=== PATIENT | male | born 1960 | race Two or more races ===

== ENCOUNTER 2017-11-08 13:12 | Emergency (ER) | payer MEDICAID ==
[~2017-11-08] VITALS: Ht 180.3 cm; Wt 90.7 kg
[2017-11-08 14:42] LABS: Hemoglobin 9.4 g/dL (13.5-17.5); Lymphocytes # (auto) 1.1 uL; Mean Corpuscular Volume 86.6 fL (80.0-100.0); Monocytes # (auto) 0.8 uL; Neutrophils # (auto) 8.7 uL
[2017-11-08 14:44] LABS: Basophils # (auto) 0 uL; Basophils % (auto) 0.3 % (0.0-2.0); Eosinophils # (auto) 0.4 uL; Hematocrit 29.7 % (41.0-53.0); Lymphocytes % (auto) 9.6 % (10.0-50.0); Mean Corpuscular Hemoglobin 27.5 pg (28.0-32.0); Mean Corpuscular Hgb Conc. 31.7 g/dL (32.0-36.0); Monocytes % (auto) 6.9 % (0.0-12.0); Neutrophils % (auto) 79.2 % (37.0-80.0); Platelet Count (auto) 465 10^3/uL (140-450); Red Blood Cells 3.43 10^6/uL (4.5-5.90)
[2017-11-08 14:48] LABS: Alanine Aminotransferase 19 U/L (16-61); Albumin 2.7 g/dL (3.4-5.0); Alkaline Phosphatase 135 U/L (45-117); Anion Gap 5 (5-15); Aspartate Aminotransferase 19 U/L (15-37); BUN/Creatinine Ratio 16.5; Bilirubin, Total 0.6 mg/dL (0.2-1.0); Blood Urea Nitrogen 13 mg/dL (7-18); Calcium 7.9 mg/dL (8.5-10.1); Carbon Dioxide 25 mmol/L (21-32); Chloride 109 mmol/L (98-107); GFR African American 130 mL/min; GFR Non-African American 108 mL/min; Glucose 139 mg/dL (74-106); Magnesium 2.4 mg/dL (1.6-2.6); Potassium 4.3 mmol/L (3.5-5.1); Sodium 139 mmol/L (136-145); Total Protein 6.8 g/dL (6.4-8.2)
[2017-11-08] MEDS ORDERED: IOHEXOL 350 MG/ML 100ML IJ ONE (16:23)
[2017-11-08] MEDS ORDERED: HYDROcodone-ACET 10/325MG TAB PO ONE (17:00)
[2017-11-08] MEDS ORDERED: HEPARIN SODIUM (PORCINE) 5000 UNITS/ML 1ML VIAL IV ONE (18:15)
[2017-11-08 18:30] VITALS: BP 147/81
== END 2017-11-08 18:46 | disposition home or self-care (01) ==
LOC: EDBD 13:12 → ER 13:12
DX: I26.99 Other pulmonary embolism without acute cor pulmonale (principal); R06.03 Acute respiratory distress; J90 Pleural effusion, not elsewhere classified; E11.9 Type 2 diabetes mellitus without complications
CPT/HCPCS: 36415; 71046; 71275; 80053; 83735; 84484; 85025; 93005; 93970; 96374; 99291; J1644; Q9967

== ENCOUNTER 2025-03-23 18:42 | Inpatient (IN) | payer MEDICAID ==
[~2025-03-23] VITALS: Ht 172.7 cm; Wt 114.3 kg
--- NOTE | 2025-03-23 19:00 | ED.PDOC ---
History of Present Illness HPI Comments 64 year old male came to ER via EMS for generalized weakness. Patient has history of hypertension, diabetes, congestive heart failure, and Afib. Patient states he has good compliance to his medications. Patient states that he is not on any blood thinners regarding his AFib. Has been feeling generally weak and dizzy for the past 4 days. Noted worsening by pedal edema. Denies any acute chest pain or shortness of breath Chief Complaint: General Weakness Time Seen by MD: 18:59 Primary Care Provider: DR. COFFEY Reviewed Notes: Nurses Notes Allergies: Coded Allergies: NO KNOWN ALLERGIES (Unverified , 11/08/17) Information Source: Patient Mode of Arrival: EMS Severity: Moderate Timing: Days Duration: Intermittent Past Medical History PAST MEDICAL HISTORY: AFIB, CHF, DM, HTN Surgical History: Denies all surgeries Family History Family History: Reviewed,noncontributory to illness Social History Smoker: Non-Smoker Alcohol: Denies ETOH Use Drugs: Denies Drug Use Lives In: Home Constitutional: denies: chills, diaphoresis, fatigue, fever, malaise, sweats, weakness, others EENTM: denies: blurred vision, double vision, ear bleeding, ear discharge, ear drainage, ear pain, ear ringing, eye pain, eye redness, hearing loss, mouth pain, mouth swelling, nasal discharge, nose bleeding, nose congestion, nose pain, photophobia, tearing, throat pain, throat swelling, voice changes, others Respiratory: denies: cough, hemoptysis, orthopnea, SOB at rest, shortness of breath, SOB with excertion, stridor, wheezing, others Cardiovascular: reports: edema; denies: chest pain, dizzy spells, diaphoresis, Dyspnea on exertion, irregular heart beat, left arm pain, lightheadedness, palpitations, PND, syncope, others Gastrointestinal: denies: abdomen distended, abdominal pain, blood streaked bowels, constipated, diarrhea, dysphagia, difficulty swallowing, hematemesis, melena, nausea, poor appetite, poor fluid intake, rectal bleeding, rectal pain, vomiting, others Genitourinary: denies: burning, dysuria, flank pain, frequency, hematuria, incontinence, penile discharge, penile sore, pain, testicle pain, testicle swelling, urgency, others Neurological: reports: dizziness, weakness; denies: fainting, headache, left sided numbness, left sided weakness, numbness, paresthesia, pre-existing deficit, right sided numbness, right sided weakness, seizure, speech problems, tingling, tremors, others Musculoskeletal: denies: back pain, gout, joint pain, joint swelling, muscle pain, muscle stiffness, neck pain, others Integumetry: denies: bruises, change in color, change in hair/nails, dryness, laceration, lesions, lumps, rash, wounds, others Allergic/Immunocompromised: denies: Difficulty Healing, Frequent Infections, Hives, Itching, others Hematologic/Lymphatic: denies: anemia, blood clots, easy bleeding, easy bruising, swollen glands, others Endocrine: denies: excessive hunger, excessive sweating, excessive thirst, excessive urination, flushing, intolerance to cold, intolerance to heat, unexplained weight gain, unexplained weight loss, others Psychiatric: denies: anxiety, bipolar disorder, depression, hopeless, panic dis order, schizophrenia, sleepless, suicidal, others Physical Exam General Appearance: No Apparent Distress, Normal HEENT: Normal ENT Inspection, Pharynx Normal, TMs Normal Neck: Full Range of Motion, Non-Tender, Normal, Normal Inspection Respiratory: Chest Non-Tender, Lungs Clear, No Accessory Muscle Use, No Respiratory Distress, Normal Breath Sounds Cardiovascular: No Edema, No JVD, No Murmur, No Gallop, Normal Peripheral Pulses, Regular Rate/Rhythm Breast Exam: Deferred Gastrointestinal: No Organomegaly, Non Tender, No Pulsatile Mass, Normal Bowel Sounds, Soft Genitalia: Deferred Pelvic: Deferred Rectal: Deferred Extremities: No calf tenderness, Normal capillary refill, Normal inspection, Normal range of motion, Non-tender, No pedal edema Musculoskeletal : Apperance: Normal Neurologic: Alert, drop tester II-XII nml as Tested, No Motor Deficits, Normal Affect, Normal Mood, No Sensory Deficits Cerebellar Function: Normal Reflexes: Normal Skin: Dry, Normal Color, Warm Lymphatic: No Adenopathy Was a procedure done? Was a procedure done?: No EKG EKG : Pulse Rate (adult): 175 Cardiac Rhythm: Afib Differential Dx Considerations may include: Anemia, electrolyte imbalance, dehydration, congestive heart failure, X-Ray, Labs, Meds, VS Vital Signs Date Time Temp Pulse Resp B/P (MAP) Pulse Ox O2 Delivery O2 Flow Rate FiO2 03/23/25 21:13 145 94/55 03/23/25 20:46 94 20 98 Room Air* 0 21 03/23/25 20:46 98.1 145 20 93/44 (60) 98 98.1 03/23/25 20:32 150 98/60 03/23/25 20:13 144 117/61 03/23/25 19:45 143 03/23/25 19:32 157 104/61 03/23/25 19:00 175 03/23/25 18:42 98.6 110 20 103/63 97 98.6 03/23/25 18:42 175 Lab Test 03/23/25 22:05 03/23/25 22:00 03/23/25 20:11 03/23/25 19:50 Range/Units POC Glucose 200 H 187 H 70-106 mg/dl Troponin I High Sensitivity Pending 66 *H </=54 ng/L Test 03/23/25 19:07 Range/Units White Blood Count 23.0 H 4.4-10.8 10^3/uL Red Blood Count 4.60 4.5-5.90 10^6/uL Hemoglobin 13.7 13.5-17.5 g/dL Hematocrit 41.1 41.0-53.0 % Mean Corpuscular Volume 89.4 80.0-100.0 fL Mean Corpuscular Hemoglobin 29.8 28.0-32.0 pg Mean Corpuscular Hemoglobin Concent 33.4 32.0-36.0 g/dL Red Cell Distribution Width 14.7 H 11.8-14.3 % Platelet Count 273 140-450 10^3/uL Mean Platelet Volume 8.0 6.9-10.8 fL Neutrophils (%) (Auto) 91.1 H 37.0-80.0 % Lymphocytes (%) (Auto) 2.7 L 10.0-50.0 % Monocytes (%) (Auto) 5.9 0.0-12.0 % Eosinophils (%) (Auto) 0.0 0.0-7.0 % Basophils (%) (Auto) 0.3 0.0-2.0 % Neutrophils # (Auto) 21.0 H 1.6-8.6 10 ^3/uL Lymphocytes # (Auto) 0.6 0.4-5.4 10 ^3/uL Monocytes # (Auto) 1.4 H 0-1.3 10 ^3/uL Eosinophils # (Auto) 0 0-0.8 10 ^3/uL Basophils # (Auto) 0.1 0-0.2 10 ^3/uL Nucleated Red Blood Cells 0.0 % Prothrombin Time 11.9 H 9.3-11.8 sec Prothrombin Time INR 1.14 0.9-1.15 Activated Partial Thromboplast Time 27.1 24.5-34.5 SEC Sodium Level 140 136-145 mmol/L Potassium Level 3.7 3.5-5.1 mmol/L Chloride Level 103 98-107 mmol/L Carbon Dioxide Level 19 L 20-31 mmol/L Anion Gap 18 H 5-15 Blood Urea Nitrogen 48 H 9-23 mg/dL Creatinine 1.38 H 0.700-1.30 mg/dL Glomerular Filtration Rate Calc 57 >90 mL/min BUN/Creatinine Ratio 34.8 H 10.0-20.0 Serum Glucose 191 H 74-106 mg/dL Calcium Level 8.7 8.7-10.4 mg/dL Total Bilirubin 0.7 0.2-1.0 mg/dL Aspartate Amino Transferase (AST) 34 13-40 U/L Alanine Aminotransferase (ALT) 20 7-40 U/L Alkaline Phosphatase 94 46-116 U/L Troponin I High Sensitivity 60 *H </=54 ng/L B-Type Natriuretic Peptide 261.46 0-100 pg/mL Total Protein 6.0 5.7-8.2 g/dL Albumin 3.6 3.2-4.8 g/dL Current Medications Medications (Trade) Dose Ordered Sig/Angeline Route Start Time Stop Time Status Last Admin Metoprolol Tartrate (Lopressor) 5 mg Q5M PRN IV 03/23/25 19:00 03/24/25 07:00 03/23/25 20:13 Amiodarone HCl 100 ml @ 600 mls/hr ONCE ONCE IV 03/23/25 21:30 03/23/25 21:39 DC 03/23/25 21:47 Time of 1ST Reevaluation: 18:52 Reevaluation 1ST: Unchanged Patient Education/Counseling: Diagnosis, Treatment Family Education/Counseling: No Family Present Sepsis focused exam: focus exam completed (Patient was given 1 L of IV fluid and not the full 30 cc/kilogram for sepsis due to concerns of fluid overload), time: (1900) SEPSIS Sepsis Screen Physician Orders Chest Portable (03/23/25 18:48) Heplock Iv (03/23/25 18:48) Rehanger (03/23/25 18:48) Troponin-I Hs (03/23/25 21:48) Electrocardigram (03/23/25 18:51) Metoprolol Inj (Lopressor) (03/23/25 19:00) Head Without Contrast (03/23/25 19:43) Lt Lower Dvt (03/23/25 20:28) Amiodarone 360mg/200ml Premix (Nexterone (03/23/25 21:45) Amiodarone 360mg/200ml Premix (Nexterone (03/24/25 03:45) Vital Signs Date Time Temp Pulse Resp B/P (MAP) Pulse Ox O2 Delivery O2 Flow Rate FiO2 03/23/25 21:13 145 94/55 03/23/25 20:46 94 20 98 Room Air* 0 21 03/23/25 20:46 98.1 145 20 93/44 (60) 98 98.1 03/23/25 20:32 150 98/60 03/23/25 20:13 144 117/61 03/23/25 19:45 143 03/23/25 19:32 157 104/61 03/23/25 19:00 175 03/23/25 18:42 98.6 110 20 103/63 97 98.6 03/23/25 18:42 175 Laboratory Tests Test 03/23/25 19:07 White Blood Count 23.0 10^3/uL (4.4-10.8) H Medications Medications Dose Ordered Sig/Angeline Route Start Time Stop Time Status Last Admin Dose Admin Amiodarone HCl 100 ml @ 600 mls/hr ONCE ONCE IV 03/23/25 21:30 03/23/25 21:39 DC 03/23/25 21:47 Metoprolol Tartrate 5 mg Q5M PRN IV 03/23/25 19:00 03/24/25 07:00 03/23/25 20:13 Departure 1 Departure Time of Disposition: 22:27 Impression: Primary Impression: Atrial fibrillation with rapid ventricular response Additional Impression: Left leg cellulitis Disposition: 01 HOME / SELF CARE / HOMELESS Admit to: Tele Condition: Stable Discharged With: Self Comments 64-year-old male with a history of atrial fibrillation now with left greater than right leg swelling and pain and chest pain. Lab work shows high white blood cell count of 23. Troponins are elevated at 60 and then later 66. Mild hyperglycemia renal insufficiency/acute renal injury with BUN creatinine elevated at 48 and 1.38. Ultrasound of the left leg shows no signs of DVT but there is significant lymphadenopathy. Patient was given Zosyn antibiotics. Patient was initially attempted to give 3 doses of Lopressor but it did not improve his heart rate. At amiodarone infusion was started at this point to control his atrial fibrillation. Patient was given aspirin. Patient will need admission for stabilization and further workup Critical Care Note Critical Care Time?: Yes (35 min-critical care time only) Critical care comment: Total critical care time: Approximately 46 minutes Due to a high probability of clinically significant, life threatening deterioration, the patient required my highest level of preparedness to intervene emergently and I personally spent this critical care time directly and personally managing the patient. This critical care time included obtaining a history; examining the patient; pulse oximetry; ordering and review of studies; arranging urgent treatment with development of a management plan; evaluation of patient's response to treatment; frequent reassessment; and, discussions with other providers. This critical care time was performed to assess and manage the high probability of imminent, life-threatening deterioration that could result in multi-organ failure. It was exclusive of separately billable procedures and treating other patients. Stability Stability form required: No Heart Score Heart Score: Heart Score Response (Comments) Value History N/A 0 EKG N/A 0 Age N/A 0 Risk Factors N/A 0 Troponin N/A 0 Total 0 I personally scribed for DIANE MYLES MD ([email or web address]) on 03/23/25 at 19:00. Electronically submitted by Leo Angelo ([email or web address]). DIANE MYLES MD Mar 23, 2025 19:00
--- NOTE | 2025-03-23 19:24 | DVH ---
CHEST RADIOGRAPH Indication: SOB Technique: Single frontal view of the chest was obtained COMPARISON: None FINDINGS: Lines and Tubes: None Lungs: Clear Pleura: No effusion. No pneumothorax. Cardiomediastinal contours: Unremarkable Bones: Unremarkable IMPRESSION: 1. No acute disease.
[2025-03-23 19:29] LABS: Hematocrit 41.1 % (41.0-53.0); Hemoglobin 13.7 g/dL (13.5-17.5); Mean Corpuscular Hemoglobin 29.8 pg (28.0-32.0); Mean Corpuscular Volume 89.4 fL (80.0-100.0); Nucleated Red Blood Cells % 0.0 %
[2025-03-23] MEDS: METOPROLOL TARTRATE 1MG/1ML-5ML VIAL IV PRN (19:32)
[2025-03-23 19:45] LABS: INR 1.14 (0.9-1.15); Partial Thromboplastin Time 27.1 SEC (24.5-34.5); Prothrombin Time 11.9 sec (9.3-11.8)
[2025-03-23 19:48] LABS: Alanine Aminotransferase 20 U/L (7-40); Albumin 3.6 g/dL (3.2-4.8); Alkaline Phosphatase 94 U/L (46-116); Anion Gap 18 (5-15); BUN/Creatinine Ratio 34.8 (10.0-20.0); Bilirubin, Total 0.7 mg/dL (0.2-1.0); Chloride 103 mmol/L (98-107); Potassium 3.7 mmol/L (3.5-5.1); Sodium 140 mmol/L (136-145); Total Protein 6.0 g/dL (5.7-8.2)
[2025-03-23 19:49] LABS: Blood Urea Nitrogen 48 mg/dL (9-23); Calcium 8.7 mg/dL (8.7-10.4); Carbon Dioxide 19 mmol/L (20-31); Glucose 191 mg/dL (74-106)
[2025-03-23 20:46] VITALS: PULSE 94; RESP 20; O2SAT 98
--- NOTE | 2025-03-23 21:31 | DVH ---
Ultrasound Lower Extremity Veins Indication: pain / swelling rule out DVT Comparison: None Technique: Multiplanar grayscale and color sonographic images of the lower extremity veins are provid ed. Doppler interrogation, and spectral waveform analysis performed. Findings: Impression: 1. posterior tibial vein not well visualized. otherwise no evidence of occlusive deep venous thrombos is. 2. Left inguinal lymphadenopathy measuring 3.7 x 1.3 x 2.5 cm.
[2025-03-23] MEDS: AMIODARONE 360mg/200mL PREMIX 200 ML IV ONE (21:47)
[2025-03-23] MEDS: AMIODARONE BOLUS KIT 100 ML IV ONE (21:47)
--- NOTE | 2025-03-23 22:05 | DVH ---
Indication: head injury fall Comparison: None Technique: Utilizing a multislice CT scanner, a CT scan of the brain was performed without intravenou s contrast. Coronal and sagittal reformatted images. All CT scans at this facility use dose modulation, iterative reconstruction, and/or weight based dosi ng when appropriate to reduce radiation dose to as low as reasonably achievable. Findings: There is no acute infarct, intracranial hemorrhage, or mass effect. There is no hydrocephalus or sign ificant midline shift. There is mild to moderate chronic microvascular ischemic changes and mild to moderate parenchymal vo lume loss. No acute, depressed calvarial fractures. No large scalp hematomas. Impression: 1. No acute intracranial process.
[2025-03-23] MEDS: PIPERACILLIN-TAZOB 3.375GM 100 ML IV ONE (22:45)
[2025-03-23] MEDS: HYDROcodone-ACET 5/325MG TAB PO ONE (23:44)
[2025-03-24] VITALS (7 sets, daily range): BP systolic 102–125; BP diastolic 52–81; PULSE 75–157; RESP 16–19; TEMP 97.4–98.5; O2SAT 95–99
[2025-03-24] MEDS: FUROSEMIDE 20 MG/2 ML VIAL IV ONE (00:30)
--- NOTE | 2025-03-24 00:41 | DVHHP2 ---
History of Present Illness Reason for Visit: Atrial fibrillation with rapid ventricular response History of Present Illness The patient is a 64-year-old male with past medical history of AFib, CHF, d iabetes mellitus, and hypertension who presented to [facility] ED for evaluation of generalized weakness. Patient reports he is not on any blood thinner regarding his AFib, feeling generally weak, dizzy for the past 4 days, pedal edema, worsening that prompted this visit. Patient was seen and evaluated in the ED, laboratory data shows WBC 23.0, platelets 273, sodium 140, potassium 3.7, BUN 48, creatinine 1.38, GFR 57, glucose 191, calcium 8.7, BNP 261.46, troponin 61, blood pressure 94/55, heart rate 150, temperature 98.1 F, O2 saturation 98% on room air. Head CT showed no acute intracranial process. Extremity venous study showed no evidence of occlusive deep venous thrombosis, noted left inguinal lymphadenopathy measuring 3.7 x 1.3 x 2.5 cm. Patient was started on IV antibiotic regimen Zosyn, please see medication orders section in the computer. On my assessment, patient denied chest pain, no headache, no dizziness, no diaphoresis, no shortness of breaths, no abdominal pain, no nausea, no vomiting, no fever, no chills. Patient was admitted for further evaluation and medical management. Past Medical History AFIB, CHF, DM, HTN Past Surgical History Denies all surgeries Family History Reviewed, noncontributory to the management of this case. Past Social History The patient lives at home, denies smoking, alcohol or illicit drugs abuse. Review of Systems Constitutional: Yes: Weakness; No: Fever, Chills, Sweats, Malaise, Other Eyes: No: Pain, Vision change, Conjunctivae inflammation, Eyelid inflammation, Other, Redness ENT: No: Ear pain, Ear discharge, Nose pain, Nose discharge, Nose congestion, Mouth pain, Mouth swelling, Throat pain, Throat swelling, Other Respiratory: No: Cough, Dry, Shortness of breath, SOB with excertion, Wheezing, Hemoptysis, Pleuritic Pain, Sputum, Wheezing, Other Cardiovascular: Edema; No: Chest Pain, Palpitations, Orthopnea, Paroxysmal Noc. Dyspnea, Lt Headedness, Other Gastrointestinal: No: Nausea, Vomiting, Abdominal Pain, Diarrhea, Constipation, Melena, Hematochezia, Other Genitourinary: No Dysuria, No Frequency, No Incontinence, No Hematuria, No Retention, No Other Musculoskeletal: No: other, neck pain, shoulder pain, arm pain, back pain, hand pain, leg pain, foot pain Skin: No: Rash, Lesions, Jaundice, Bruising, Other Neurological: Weakness, Other (Dizziness); No: Numbness, Incoordination, Change in speech, Confusion, Seizures Allergies: Coded Allergies: NO KNOWN ALLERGIES (Unverified , 11/08/17) Medications Current Medications Medications Dose Ordered Sig/Angeline Route Start Time Stop Time Status Last Admin Dose Admin Metoprolol Tartrate 5 mg Q5M PRN IV 03/23/25 19:00 03/24/25 07:00 03/23/25 20:13 5 MG Aspirin 81 mg DAILY PO 03/24/25 10:00 UNV Metoprolol Tartrate 50 mg BID PO 03/24/25 10:00 UNV Atorvastatin Calcium 10 mg HS PO 03/24/25 22:00 UNV Furosemide 20 mg DAILY IV 03/24/25 10:00 UNV Exam Vital Signs Vital Signs Date Time Temp Pulse Resp B/P (MAP) Pulse Ox O2 Delivery O2 Flow Rate FiO2 03/23/25 22:02 144 03/23/25 21:13 94/55 03/23/25 20:46 20 98 Room Air* 0 21 03/23/25 20:46 98.1 98.1 General Appearance: Alert, Oriented X3, Cooperative, No acute distress HEENT: Atraumatic, PERRLA, EOMI, Mucous membr. moist/pink Respiratory: Normal air movement Cardiovascular: Normal S1, Normal S2, No murmurs, Other (Irregular rate AFib) Abdominal: Normal bowel sounds, Soft, No tenderness, No hepatospenomegaly, No masses Extremities: No clubbing, No cyanosis, No edema, Normal pulses, No tenderness/swelling Skin: No rashes, No breakdown, No significant lesion Neuro: Normal speech, Normal tone, Sensation intact, Cranial nerves 3-12 NL, Reflexes 2+, Other (Generalized weakness) Psych/Mental Status: Mental status NL, Mood NL Labs/Xrays Labs Test 03/23/25 22:05 03/23/25 22:00 03/23/25 19:07 Range/Units POC Glucose 200 H 70-106 mg/dl Troponin I High Sensitivity 61 *H </=54 ng/L White Blood Count 23.0 H 4.4-10.8 10^3/uL Red Blood Count 4.60 4.5-5.90 10^6/uL Hemoglobin 13.7 13.5-17.5 g/dL Hematocrit 41.1 41.0-53.0 % Mean Corpuscular Volume 89.4 80.0-100.0 fL Mean Corpuscular Hemoglobin 29.8 28.0-32.0 pg Mean Corpuscular Hemoglobin Concent 33.4 32.0-36.0 g/dL Red Cell Distribution Width 14.7 H 11.8-14.3 % Platelet Count 273 140-450 10^3/uL Mean Platelet Volume 8.0 6.9-10.8 fL Neutrophils (%) (Auto) 91.1 H 37.0-80.0 % Lymphocytes (%) (Auto) 2.7 L 10.0-50.0 % Monocytes (%) (Auto) 5.9 0.0-12.0 % Eosinophils (%) (Auto) 0.0 0.0-7.0 % Basophils (%) (Auto) 0.3 0.0-2.0 % Neutrophils # (Auto) 21.0 H 1.6-8.6 10 ^3/uL Lymphocytes # (Auto) 0.6 0.4-5.4 10 ^3/uL Monocytes # (Auto) 1.4 H 0-1.3 10 ^3/uL Eosinophils # (Auto) 0 0-0.8 10 ^3/uL Basophils # (Auto) 0.1 0-0.2 10 ^3/uL Nucleated Red Blood Cells 0.0 % Prothrombin Time 11.9 H 9.3-11.8 sec Prothrombin Time INR 1.14 0.9-1.15 Activated Partial Thromboplast Time 27.1 24.5-34.5 SEC Sodium Level 140 136-145 mmol/L Potassium Level 3.7 3.5-5.1 mmol/L Chloride Level 103 98-107 mmol/L Carbon Dioxide Level 19 L 20-31 mmol/L Anion Gap 18 H 5-15 Blood Urea Nitrogen 48 H 9-23 mg/dL Creatinine 1.38 H 0.700-1.30 mg/dL Glomerular Filtration Rate Calc 57 >90 mL/min BUN/Creatinine Ratio 34.8 H 10.0-20.0 Serum Glucose 191 H 74-106 mg/dL Calcium Level 8.7 8.7-10.4 mg/dL Total Bilirubin 0.7 0.2-1.0 mg/dL Aspartate Amino Transferase (AST) 34 13-40 U/L Alanine Aminotransferase (ALT) 20 7-40 U/L Alkaline Phosphatase 94 46-116 U/L B-Type Natriuretic Peptide 261.46 0-100 pg/mL Total Protein 6.0 5.7-8.2 g/dL Albumin 3.6 3.2-4.8 g/dL PATIENT: SAVAGE DE ANDA ACCT: [id number] UNIT: [id number] : 1960 LOC: ER ROOM / BED: / AGE/SEX: 64 / M ADM STATUS: REG ER SERVICE 42 ORDERING PHYSICIAN: DIANE MYLES MD PROCEDURE(s): HWOCT - HEAD WITHOUT CONTRAST REASON: head injury fall ORDER NUMBER(s): [id number], ACCESSION NUMBER(s): [id number] Indication: head injury fall Comparison: None Technique: Utilizing a multislice CT scanner, a CT scan of the brain was performed without intravenous contrast. Coronal and sagittal reformatted images. All CT scans at this facility use dose modulation, iterative reconstruction, and/or weight based dosing when appropriate to reduce radiation dose to as low as reasonably achievable. Findings: There is no acute infarct, intracranial hemorrhage, or mass effect. There is no hydrocephalus or significant midline shift. There is mild to moderate chronic microvascular ischemic changes and mild to moderate parenchymal volume loss. No acute, depressed calvarial fractures. No large scalp hematomas. Impression: 1. No acute intracranial process. ORDERING PHYSICIAN: DIANE MYLES MD PROCEDURE(s): LLDVT - LT Lower DVT REASON: pain / swelling rule out DVT ORDER NUMBER(s): [id number], ACCESSION NUMBER(s): [id number] Ultrasound Lower Extremity Veins Indication: pain / swelling rule out DVT Comparison: None Technique: Multiplanar grayscale and color sonographic images of the lower extremity veins are provided. Doppler interrogation, and spectral waveform analysis performed. Findings: Impression: 1. posterior tibial vein not well visualized. otherwise no evidence of occlusive deep venous thrombosis. 2. Left inguinal lymphadenopathy measuring 3.7 x 1.3 x 2.5 cm. ORDERING PHYSICIAN: DIANE MYLES MD PROCEDURE(s): CXRP - CHEST PORTABLE REASON: SOB ORDER NUMBER(s): [id number], ACCESSION NUMBER(s): [id number] CHEST RADIOGRAPH Indication: SOB Technique: Single frontal view of the chest was obtained COMPARISON: None FINDINGS: Lines and Tubes: None Lungs: Clear Pleura: No effusion. No pneumothorax. Cardiomediastinal contours: Unremarkable Bones: Unremarkable IMPRESSION: 1. No acute disease. SEPSIS Sepsis Screen Date sepsis recognized/suspect: Mar 23, 2025 Time Sepsis recognized/suspect: 2050 Recent Procedure: No On Antibiotic Therapy: No Respiratory Rate >20: No Heart Rate >90: Yes Temp<36 C (96.8 F) or >38.3 C: No SBP <90 or MAP <65 mmHG: No New Acute Mental Status Change: No Is the patient on CPAP, BIPAP,: No Physician Orders Chest Portable (03/23/25 18:48) Heplock Iv (03/23/25 18:48) Horse Identifier (03/23/25 18:48) Electrocardigram (03/23/25 18:51) Metoprolol Inj (Lopressor) (03/23/25 19:00) Head Without Contrast (03/23/25 19:43) Lt Lower Dvt (03/23/25 20:28) Amiodarone 360mg/200ml Premix (Nexterone (03/23/25 21:45) Amiodarone 360mg/200ml Premix (Nexterone (03/24/25 03:45) Blood Glucose Q4h (03/23/25 23:48) Complete Blood Count (03/24/25 04:00) Comprehensive Metabolic Panel (03/24/25 04:00) Aspirin Tablet (03/24/25 10:00) Metoprolol Tartrate Tablet (Lopressor Ta (03/24/25 10:00) Atorvastatin (Lipitor) (03/24/25 22:00) Furosemide Injection (Lasix Injection) (03/24/25 00:30) Furosemide Injection (Lasix Injection) (03/24/25 10:00) * Cardiology Consult (03/24/25 00:21) Blood Culture (03/24/25 00:21) Glucose Blood (Accu-Chek Comfort Curve T (03/24/25 04:00) Moderate Insulin Ss (03/24/25 04:00) Dextrose 50% Syringe (03/24/25 00:45) Admit (03/24/25 00:36) Allergies (03/24/25 00:36) Code Status (03/24/25 00:36) Sodium Chloride Lock (Saline Lock Ns) (03/24/25 06:00) Oxygen Per Hour (03/24/25:36) Hydrocodone-Acet 5/325mg Tab ([place] 5/32 (03/24/25 00:45) Ondansetron Hcl (Zofran) (03/24/25 00:45) Docusate Sodium Capsule (Colace Capsule) (03/24/25 00:45) Fall Risk Precautions In Place QSHIFT (03/24/25 00:36) Complete Blood Count (03/25/25 04:00) Comprehensive Metabolic Panel (03/25/25 04:00) Cardiac Diet-2gna,Lofat,Lochol (03/24/25 Breakfast) Echo 2d Mode Cardiac Dop (03/24/25 00:36) Condition: Serious (03/24/25:36) Acetaminophen Tablet (Tylenol Tablet) (03/24/25 00:45) Maintain Bed Rest (03/24/25 00:36) Sequential Compression Device (03/24/25 ) Nitroglycerin Sublingual (Ntrostat Subli (03/24/25 00:45) Morphine Sulfate Injection (03/24/25 00:45) Stat Ekg For Chest Pain (03/24/25:36) Notify Md Of Changes From Base (03/24/25:36) Kinder Teacher For 24 Hours (03/24/25 00:36) Emergency Dysrhythmia Protocol (03/24/25:) Rhythm Strips Once Every Shift (03/24/25:36) Oxygen By Nasal Cannula (03/24/25:36) Vital Signs Date Time Temp Pulse Resp B/P (MAP) Pulse Ox O2 Delivery O2 Flow Rate FiO2 03/23/25 22:02 144 03/23/25 21:13 145 94/55 03/23/25 20:46 94 20 98 Room Air* 0 21 8/16/25 20:46 98.1 145 20 93/44 (60) 98 98.1 03/23/25 20:32 150 98/60 03/23/25 20:13 144 117/61 03/23/25 19:45 143 03/23/25 19:32 157 104/61 03/23/25 19:00 175 03/23/25 18:42 98.6 110 20 103/63 97 98.6 03/23/25 18:42 175 Laboratory Tests Test 03/23/25 19:07 White Blood Count 23.0 10^3/uL (4.4-10.8) H Medications Medications Dose Ordered Sig/Angeline Route Start Time Stop Time Status Last Admin Dose Admin Acetaminophen/ Hydrocodone Bitart 1 tab ONCE ONCE PO 03/23/25 23:30 03/23/25 23:31 DC 03/23/25 23:44 1 TAB Amiodarone HCl 100 ml @ 600 mls/hr ONCE ONCE IV 03/23/25 21:30 03/23/25 21:39 DC 03/23/25 21:47 600 MLS/HR Aspirin 162 mg ONCE ONCE PO 03/23/25 22:45 03/23/25 22:46 DC 03/23/25 22:45 162 MG Metoprolol Tartrate 5 mg Q5M PRN IV 03/23/25 19:00 03/24/25 07:00 03/23/25 20:13 5 MG Piperacillin Sod/ Tazobactam Sod 100 ml @ 100 mls/hr ONCE ONCE IV 03/23/25 22:45 03/23/25 23:44 DC 03/23/25 22:45 100 MLS/HR Assessment/Plan Assessment/Plan Atrial fibrillation with rapid ventricular response Left leg cellulitis Elevated troponin Acute renal injury Leukocytosis, unspecified Diabetes mellitus with hyperglycemia Acute exacerbation of congestive heart failure Plan 1. Admit to telemetry unit 2. Breathing treatment 3. Pain control management 4. IV antibiotic management 5. Management of fluids and electrolytes 6. Consultation for Cardiology 7. Diagnostic test head CT 8. DVT prophylaxis-on aspirin 9. Repeat labs CBC, CMP in a.m. 10. Home medication reviewed and reconciled 11. Continue with current medical management 12. Treatment plan discussed with patient and RN. Patient verbalized understanding. Plan discussed with: Patient, Other (RN) My Orders Orders - MEENA MERCADO DNP Procedure Category Date Status Time Complete Blood Count LAB 03/24/25 Logged 04:00 Comprehensive LAB 03/24/25 Logged Metabolic Panel 04:00 Aspirin Tablet PHA 03/24/25 Logged 10:00 Metoprolol Tartrate PHA 03/24/25 Logged Tablet (Lopressor Ta 10:00 Atorvastatin (Lipitor) PHA 03/24/25 Logged 22:00 Furosemide Injection PHA 03/24/25 Logged (Lasix Injection) 00:30 Furosemide Injection PHA 03/24/25 Logged (Lasix Injection) 10:00 * Cardiology Consult CONS 03/24/25 Transmitted 00:21 Blood Culture PABLO 03/24/25 Logged 00:21 Glucose Blood PHA 03/24/25 Transmitted (Accu-Chek Comfort 04:00 Moderate Insulin Ss PHA 03/24/25 Transmitted 04:00 Dextrose 50% Syringe PHA 03/24/25 Transmitted 00:45 Admit ADMIT 03/24/25 Transmitted 00:36 Allergies SERA 03/24/25 Transmitted 00:36 Code Status CODE 03/24/25 Transmitted 00:36 Sodium Chloride Lock PHA 03/24/25 Transmitted (Saline Lock Ns) 06:00 Oxygen Per Hour RT 03/24/25 Transmitted 00:36 Hydrocodone-Acet PHA 03/24/25 Transmitted 5/325mg Tab ([place] 00:45 Ondansetron Hcl PHA 03/24/25 Transmitted (Zofran) 00:45 Docusate Sodium PHA 03/24/25 Transmitted Capsule (Colace 00:45 Fall Risk Precautions SERA 03/24/[address] 00:36 Complete Blood Count LAB 03/25/25 Verified 04:00 Comprehensive LAB 03/25/25 Verified Metabolic Panel 04:00 Cardiac DIET 03/24/25 Transmitted Diet-2gna,Lofat,Lochol Breakfast Echo 2d Mode Cardiac US 03/24/25 Transmitted DOP 00:36 Condition: Serious SERA 03/24/25 Transmitted 00:36 Acetaminophen Tablet PHA 03/24/25 Transmitted (Tylenol Tablet) 00:45 Maintain Bed Rest SERA 03/24/25 Transmitted 00:36 Sequential SERA 03/24/25 Transmitted Compression Device Nitroglycerin PHA 03/24/25 Transmitted Sublingual (Ntrostat 00:45 Morphine Sulfate PHA 03/24/25 Transmitted Injection 00:45 Stat Ekg For Chest SERA 03/24/25 Transmitted Pain 00:36 Notify Md Of Changes SERA 03/24/25 Transmitted From Base 00:36 Kinder Teacher For [facility] 03/24/25 Transmitted 24 Hours 00:36 Emergency Dysrhythmia [facility] 03/24/25 Transmitted Protocol 00:36 Rhythm Strips Once [facility] 03/24/25 Transmitted Every Shift 00:36 Oxygen By Nasal RT 03/24/25 Verified Cannula 00:36 Problem List: (1) Atrial fibrillation with rapid ventricular response (2) Acute renal injury (3) Elevated troponin (4) Left leg cellulitis (5) Leukocytosis, unspecified (6) Diabetes mellitus with hyperglycemia (7) Acute exacerbation of congestive heart failure Date of Service: Mar 24, 2025 Billing Provider: MEENA MERCADO DNP Common Visit Codes: [id number] INP/OBS CARE (HIGH) MEENA MERCADO DNP Mar 24, 2025 00:41
[2025-03-24] MEDS ORDERED: NITROGLYCERIN 0.4 MG SL TAB SL PRN (00:45)
[2025-03-24] MEDS ORDERED: DEXTROSE (50%) 50ML SYRG IV PRN (00:45)
[2025-03-24] MEDS ORDERED: ONDANSETRON HCL 4 MG/2 ML VIAL IV PRN (00:45)
[2025-03-24] MEDS ORDERED: DOCUSATE SOD 100 MG CAP PO PRN (00:45)
[2025-03-24] MEDS ORDERED: MORPHINE SULFATE INJ 2 MG/ml SYRG IV PRN (00:45)
[2025-03-24] MEDS ORDERED: ACETAMINOPHEN 325 MG TAB PO PRN (00:45)
[2025-03-24] MEDS: AMIODARONE 360mg/200mL PREMIX 200 ML IV SCH (04:23)
[2025-03-24] MEDS: ACCU-CHEK COMFORT CURVE STRIP VI SCH (04:35)
[2025-03-24] MEDS: InsuLIN REG 1unit/0.01ml Soln (100units/ml) SC SCH (04:40)
[2025-03-24] MEDS ORDERED: METO-289 PO (04:55)
[2025-03-24] MEDS ORDERED: EMPA1TAB3 PO (04:55)
[2025-03-24] MEDS ORDERED: LOS25T PO (04:55)
[2025-03-24] MEDS ORDERED: INSUINJ37 SC (04:55)
[2025-03-24] MEDS ORDERED: SPIR25TA8 PO (04:55)
[2025-03-24] MEDS ORDERED: CHOL-17 PO (04:55)
[2025-03-24] MEDS ORDERED: ATOR10TA52 PO (04:55)
[2025-03-24] MEDS ORDERED: INSU100I54 SC (04:55)
[2025-03-24] MEDS: SODIUM CHLOR 0.9% PF (SALINE LOCK) 10ML VIAL/SYR IV SCH (05:04)
[2025-03-24] MEDS: PIPERACILLIN-TAZOB 3.375GM 100 ML IV SCH (05:04)
[2025-03-24] MEDS: FUROSEMIDE 20 MG/2 ML VIAL IV SCH (08:19)
[2025-03-24] MEDS: ENOXAPARIN SOD 120 MG/0.8 ML SYRINGE SC SCH (09:55)
[2025-03-24] MEDS: METOPROLOL TARTRATE 50 MG TAB PO SCH (09:58)
--- NOTE | 2025-03-24 10:16 | DVHINCON2 ---
Date Seen: Mar 24, 2025 Referring Physician SHIV Pa Reason for Consultation Afib with rvr History of Present Illness 64-year-old male with a history of atrial fibrillation and congestive heart failure with reduced ejection fraction (EF 40%) presents to the emergency department via EMS for evaluation of generalized weakness. Upon arrival, the patient was found to be in atrial fibrillation with rapid ventricular response (HR 144). He reports experiencing progressive fatigue over the past few days, as well as intermittent palpitations, shortness of breath, orthopnea, and worsening bilateral lower extremity swelling--more pronounced on the left side. He notes a recent fall while walking downstairs, resulting in a right lower extremity wound. The patient denies any chest pain but expresses concern about his increasing symptoms. He was hospitalized in November for CHF exacerbation and was told to follow-up with Cardiology in [place], where he was evaluated for possible Holter monitor, but this was never completed. He reports being adherent with his prescribed heart medications but was never started on anticoagulation. He lives alone but plans to relocate to live with his daughter in [place]. He denies tobacco, alcohol, or illicit drug use and states that he has not undergone any prior cardiac catheterization or stress testing. Other significant past medical history includes hypertension, CHF, AFib, diabetes type 2, and obesity. Past Medical History As stated in HPI Past Surgical History Denies Family History: Chronic obstructive pulmonary disease G8 MOTHER, FH: cancer G8 FATHER, Family History Reviewed, non-contributory to the management of this case. Social History The patient lives at home, denies smoking, alcohol or illicit drugs abuse. Allergies: Coded Allergies: NO KNOWN ALLERGIES (Unverified , 11/08/17) Home Meds Reported Medications Losartan Potassium (Losartan Potassium) 25 Mg Tab, 1 TAB PO DAILY 03/24/25 Insulin Lispro (Insulin Lispro Kwikpen) 100 Unit/Ml Inj, 5 UNIT SC TID 03/24/25 Insulin Glargine (Lantus Solostar) 100 Unit/Ml Inj, 32 UNITS SC HS TAKE THE FULL DOSE IF BS >140. TAKE 16 UNITS IF BS <140. 03/24/25 Metoprolol Succinate (Metoprolol Succinate Er) 50 Mg Tab, 1 TAB PO DAILY 03/24/25 Empagliflozin (Jardiance) 25 Mg Tab, 1 TAB PO DAILY 03/24/25 Spironolactone (Spironolactone) 25 Mg Tab, 1 TAB PO DAILY 03/24/25 Cholecalciferol (Vitamin D3) 1,000 Unit Tab, 1000 UNIT PO DAILY, TAB 03/24/25 Atorvastatin Calcium (ATORVASTATIN CALCIUM) 10 Mg Tab, 1 TAB PO DAILY 03/24/25 Current Medications Current Medications Medications (Trade) Dose Ordered Sig/Angeline Route PRN Reason Start Time Stop Time Status Last Admin Metoprolol Tartrate (Lopressor) 5 mg Q5M PRN IV x3 doses for afib 03/23/25 19:00 03/24/25 07:00 DC 03/23/25 20:13 Aspirin 81 mg DAILY PO 03/24/25 10:00 03/24/25 08:19 Metoprolol Tartrate (Lopressor Tablet) 50 mg BID PO 03/24/25 10:00 Atorvastatin Calcium (Lipitor) 10 mg HS PO 03/24/25 22:00 Furosemide (Lasix Injection) 20 mg DAILY IV 03/24/25 10:00 Diagnostic Test (Pha) (Accu-Chek Comfort Curve T) 1 strip IQ4HR 03/24/25 04:00 03/24/25 08:13 Insulin Human Regular (InsuLIN R) IQ4HR SC 03/24/25 04:00 03/24/25 08:14 Dextrose 50 ml UD PRN IV Blood Sugar LESS THAN 60 03/24/25 00:45 Sodium Chloride (Saline Lock Ns) 10 ml Q8HR IV 03/24/25 06:00 03/24/25 05:04 Acetaminophen/ Hydrocodone Bitart ([place] 5/325MG Tab) 1 tab Q4HP PRN PO MODERATE PAIN (4-6 PAIN SCALE) 03/24/25 00:45 Ondansetron HCl (Zofran) 4 mg Q4HP PRN IV NAUSEA / VOMITING 03/24/25 00:45 Docusate Sodium (Colace Capsule) 100 mg BIDPRN PRN PO FOR CONSTIPATION 03/24/25 00:45 Acetaminophen (Tylenol Tablet) 650 mg Q6HP PRN PO PAIN SCALE 1-3 OR TEMP>100.4 03/24/25 00:45 Nitroglycerin (Ntrostat Sublingual) 0.4 mg Q5MINP PRN SL FOR CHEST PAIN 03/24/25 00:45 Morphine Sulfate 2 mg Q30M PRN IV FOR CHEST PAIN 03/24/25 00:45 Piperacillin Sod/ Tazobactam Sod 100 ml @ 25 mls/hr Q8HR IV 03/24/25 06:00 03/24/25 05:04 Review of Systems Constitutional: Fatigue and recent falls. Denies fever or chills. Ears, Nose, & Throat: No symptom reported Eyes: No symptom reported Neurological: No symptoms reported Pulmonary/Respiratory: Shortness of breath, orthopnea. Cardiovascular: Palpitations and bilateral lower extremity edema. Denies chest Gastrointestinal: No symptom reported Genitourinary: No symptom reported Musculoskeletal: Right lower extremity wound from fall. Positive bilateral leg swelling Skin: Left lower extremity erythema and scaling noted. Right lower extremity wound reported Psychiatric: No symptom reported Endocrine: No symptom reported Hemotologic/Lymphatic: Left inguinal lymphadenopathy Vital Signs Vital Signs Date Time Temp Pulse Resp B/P (MAP) Pulse Ox O2 Delivery O2 Flow Rate FiO2 03/24/25 08:19 102/52 03/24/25 08:00 75 16 99 Room Air* 0 21 03/24/25 04:05 98.3 98.3 Physical Exam INITIAL VITAL SIGNS: Reviewed by me GENERAL: Alert and oriented x3. HEAD: Head is normocephalic and atraumatic. EYES: EOMI, PERRL. No scleral icterus. No conjunctival injection. ENT: Moist mucous membranes. NECK: Supple, No masses, Full range of motion. RESPIRATORY: Lungs are clear CV: Irregularly irregular rhythm, tachycardic. Bilateral lower extremity edema. Left leg +4 pitting edema, erythema, scaling. Right leg--+2 pitting edema. Wound on lower leg GI/: Active bowel sounds, soft, nondistended, nontender. No guarding. No rebound. No masses. No CVA tenderness. INTEGUMENTARY: Left inguinal lymphadenopathy NEUROLOGIC: Alert and oriented. Face is symmetric. Speech is normal. Moves all extremities equally. Labs/Diagnostic Data Labs Test 03/24/25 08:03 03/23/25 22:00 03/23/25 19:07 Range/Units POC Glucose 149 H 70-106 mg/dl Troponin I High Sensitivity 61 *H </=54 ng/L White Blood Count 23.0 H 4.4-10.8 10^3/uL Red Blood Count 4.60 4.5-5.90 10^6/uL Hemoglobin 13.7 13.5-17.5 g/dL Hematocrit 41.1 41.0-53.0 % Mean Corpuscular Volume 89.4 80.0-100.0 fL Mean Corpuscular Hemoglobin 29.8 28.0-32.0 pg Mean Corpuscular Hemoglobin Concent 33.4 32.0-36.0 g/dL Red Cell Distribution Width 14.7 H 11.8-14.3 % Platelet Count 273 140-450 10^3/uL Mean Platelet Volume 8.0 6.9-10.8 fL Neutrophils (%) (Auto) 91.1 H 37.0-80.0 % Lymphocytes (%) (Auto) 2.7 L 10.0-50.0 % Monocytes (%) (Auto) 5.9 0.0-12.0 % Eosinophils (%) (Auto) 0.0 0.0-7.0 % Basophils (%) (Auto) 0.3 0.0-2.0 % Neutrophils # (Auto) 21.0 H 1.6-8.6 10 ^3/uL Lymphocytes # (Auto) 0.6 0.4-5.4 10 ^3/uL Monocytes # (Auto) 1.4 H 0-1.3 10 ^3/uL Eosinophils # (Auto) 0 0-0.8 10 ^3/uL Basophils # (Auto) 0.1 0-0.2 10 ^3/uL Nucleated Red Blood Cells 0.0 % Prothrombin Time 11.9 H 9.3-11.8 sec Prothrombin Time INR 1.14 0.9-1.15 Activated Partial Thromboplast Time 27.1 24.5-34.5 SEC Sodium Level 140 136-145 mmol/L Potassium Level 3.7 3.5-5.1 mmol/L Chloride Level 103 98-107 mmol/L Carbon Dioxide Level 19 L 20-31 mmol/L Anion Gap 18 H 5-15 Blood Urea Nitrogen 48 H 9-23 mg/dL Creatinine 1.38 H 0.700-1.30 mg/dL Glomerular Filtration Rate Calc 57 >90 mL/min BUN/Creatinine Ratio 34.8 H 10.0-20.0 Serum Glucose 191 H 74-106 mg/dL Calcium Level 8.7 8.7-10.4 mg/dL Total Bilirubin 0.7 0.2-1.0 mg/dL Aspartate Amino Transferase (AST) 34 13-40 U/L Alanine Aminotransferase (ALT) 20 7-40 U/L Alkaline Phosphatase 94 46-116 U/L B-Type Natriuretic Peptide 261.46 0-100 pg/mL Total Protein 6.0 5.7-8.2 g/dL Albumin 3.6 3.2-4.8 g/dL PROCEDURE(s): LLDVT - LT Lower DVT REASON: pain / swelling rule out DVT ORDER NUMBER(s): [id number], ACCESSION NUMBER(s): [id number] Ultrasound Lower Extremity Veins Indication: pain / swelling rule out DVT Comparison: None Technique: Multiplanar grayscale and color sonographic images of the lower extremity veins are provided. Doppler interrogation, and spectral waveform analysis performed. Findings: Impression: 1. posterior tibial vein not well visualized. otherwise no evidence of occlusive deep venous thrombosis. 2. Left inguinal lymphadenopathy measuring 3.7 x 1.3 x 2.5 cm. PROCEDURE(s): CXRP - CHEST PORTABLE REASON: SOB ORDER NUMBER(s): [id number], ACCESSION NUMBER(s): [id number] CHEST RADIOGRAPH Indication: SOB Technique: Single frontal view of the chest was obtained COMPARISON: None FINDINGS: Lines and Tubes: None Lungs: Clear Pleura: No effusion. No pneumothorax. Cardiomediastinal contours: Unremarkable Bones: Unremarkable IMPRESSION: 1. No acute disease. Assessment Acute on chronic decompensated heart failure (HFrEF) --(previous EF 40%) AFib with RVR, ? chronic vs paroxymal/transient, on BB (CHADS-VASc score 3, HAS- BLED 1) Mildy elevated troponin, likely representing type 2 demand ischemia Non-sustained ventricular tachycardia Left inguinal lymphadenopathy BRODY possible CKD Right lower extremity diabetic ulcer Rule out PAD DVT, ruled out hx of Falls Hypertension Type 2 diabetes Morbid obesity Plan/Recommendation (Dr. Louise ): Despite being on amiodarone drip 0.5mg/min and metoprolol 50 mg p.o. b.i.d., patient remains AFib with sustained heart rate in 130-140s. Additionally, telemetry capture brief nonsustained VT (5 beats). BP pressure is currently borderline at 102/52mmHg, limiting further escalation of beta lauren therapy. We will initiate rate control with digoxin. AFib with RVR * Continue amiodarone drip at 0.5mg/min * Continue metoprolol tartrate 50 b.i.d. (no titration due to SBP 102/52) * Initiate IV digoxin loading and additional rate control due to persistent heart rate in 130-140s and limited BP tolerance * Monitor for bradycardia, signs of digoxin toxicity * Check Digoxin level on 03/26/25 * Therapeutic Lovenox * Monitor QTc on telemetry/ECG * Educate patient on AF-related stroke risk and need for long-term anticoagulation NSVT * Continue amiodarone drip * Monitor telemetry for recurrent VT or hemodynamically stability * Magnesium 2 g IV x1 dose * Ensure electrolytes are optimized (goa; k+ .4.0, Mg > 2.0) HFrEF * Continue IV diuresis * Continue/optimize GDMT once BP stabilizes given soft BP * Repeat transthoracic echocardiogram to assess EF and cardiac function Type 2 NSTEMI (suspected) * Trend troponins and monitor for chest pain or ECG changes Further cardiac risk stratification * TSH, lipid panel, and A1c ordered for secondary risk factor evaluation and optimization * Continue statins Peripheral vascular concern * Bilateral LE edema, left inguinal lymphedema * Arterial Doppler of lower extremity ordered to assess for PAD Further ischemic workup if symptoms persist or EF worsens on echo. Close cardiac monitoring. This medical document was created using an electronic medical record system with voice recognition software and computerized dictation system. Although this document has been carefully reviewed, there might still be some phonetic and typographical errors. Occasional wrong-word or ``sound-alike substitutions may have occurred due to the inherent limitations of voice recognition software. These areas are purely typographical due to imperfections of the software programs and do not reflect any compromise in the patient's medical care. Please read the chart carefully and recognize, using context, where these substitutions have occurred. Plan discussed with: Patient Plan discussed with: Patient NYHA Physical activity limitations: Class3(Marked) ordinary Date of Service: Mar 24, 2025 Billing Provider: CLINT LOUISE MD Cardiology Common Codes: CONSULT ONLY Cardiology Consultation Codes: [id number] CONSULT <60MIN [facility] Mar 24, 2025 10:16
[2025-03-24 10:57] LABS: Hematocrit 38.6 % (41.0-53.0); Hemoglobin 12.9 g/dL (13.5-17.5); Mean Corpuscular Hemoglobin 29.3 pg (28.0-32.0); Mean Corpuscular Volume 88.0 fL (80.0-100.0); Nucleated Red Blood Cells % 0.0 %
[2025-03-24 11:16] LABS: Alanine Aminotransferase 15 U/L (7-40); Alkaline Phosphatase 95 U/L (46-116); Anion Gap 11 (5-15); BUN/Creatinine Ratio 30.6 (10.0-20.0); Carbon Dioxide 23 mmol/L (20-31); Chloride 103 mmol/L (98-107); Sodium 137 mmol/L (136-145); Total Protein 6.0 g/dL (5.7-8.2)
[2025-03-24 11:17] LABS: Albumin 3.5 g/dL (3.2-4.8); Bilirubin, Total 0.4 mg/dL (0.2-1.0); Blood Urea Nitrogen 30 mg/dL (9-23); Calcium 8.7 mg/dL (8.7-10.4); Glucose 174 mg/dL (74-106); Potassium 3.4 mmol/L (3.5-5.1)
[2025-03-24] MEDS: MAGNESIUM SULFATE 1GM/100ML 100 ML IV SCH (12:23)
[2025-03-24] MEDS: DIGOXIN (250MCG/ML) 2 ML AMPULE IV ONE (12:24)
[2025-03-24 12:38] LABS: Triglycerides 108.0 mg/dL (< 150)
[2025-03-24 12:39] LABS: Magnesium 2.5 mg/dL (1.6-2.6)
[2025-03-24 12:40] LABS: Cholesterol 60.0 mg/dL (< 200); HDL Cholesterol 14.0 mg/dL (40-59)
--- NOTE | 2025-03-24 13:15 | DVHPN2 ---
Reviewed: Care Plan, H&P, Labs, Medications, Previous Orders, Radiology Changes from previous H/P or p: No Changes Eyes: No Pain, No Vision change, No Conjunctivae inflammation, No Eyelid inflammation, No Other, No Redness ENT: No Ear pain, No Ear discharge, No Nose pain, No Nose discharge, No Nose congestion, No Mouth pain, No Mouth swelling, No Throat pain, No Throat swelling, No Other Cardiovascular: No Chest Pain, No Palpitations, No Orthopnea, No Paroxysmal Noc. Dyspnea; Edema; No Lt Headedness, No Other Respiratory: No Cough, No Dry, No Shortness of breath, No SOB with excertion, No Wheezing, No Hemoptysis, No Pleuritic Pain, No Sputum, No Other Gastrointestinal: No Nausea, No Vomiting, No Abdominal Pain, No Diarrhea, No Constipation, No Melena, No Hematochezia, No Other Genitourinary: No Dysuria, No Frequency, No Incontinence, No Hematuria, No Retention, No Other Musculoskeletal: No other, No neck pain, No shoulder pain, No arm pain, No back pain, No hand pain, No leg pain, No foot pain Skin: No Rash, No Lesions, No Jaundice, No Bruising, No Other Objective Vitals Vital Signs Date Time Temp Pulse Resp B/P (MAP) Pulse Ox O2 Delivery O2 Flow Rate FiO2 03/24/25 12:24 134 03/24/25 09:58 102/52 03/24/25 09:00 97.4 16 99 97.4 03/24/25 08:00 Room Air* 0 21 Intake/Output Intake and Output 03/24/25 07:00 Intake Total 0 ml Balance 0 ml Intake Oral 0 ml Medications Current Medications Medications Dose Ordered Sig/Angeline Route Start Time Stop Time Status Last Admin Dose Admin Metoprolol Tartrate 50 mg BID PO 03/24/25 10:00 03/24/25 09:58 50 MG Atorvastatin Calcium 10 mg HS PO 03/24/25 22:00 Furosemide 20 mg DAILY IV 03/24/25 10:00 Diagnostic Test (Pha) 1 strip IQ4HR 03/24/25 04:00 03/24/25 12:02 1 STRIP Insulin Human Regular IQ4HR SC 03/24/25 04:00 03/24/25 12:22 6 UNITS Dextrose 50 ml UD PRN IV 03/24/25 00:45 Sodium Chloride 10 ml Q8HR IV 03/24/25 06:00 03/24/25 05:04 10 ML Acetaminophen/ Hydrocodone Bitart 1 tab Q4HP PRN PO 03/24/25 00:45 Ondansetron HCl 4 mg Q4HP PRN IV 03/24/25 00:45 Docusate Sodium 100 mg BIDPRN PRN PO 03/24/25 00:45 Acetaminophen 650 mg Q6HP PRN PO 03/24/25 00:45 Nitroglycerin 0.4 mg Q5MINP PRN SL 03/24/25 00:45 Morphine Sulfate 2 mg Q30M PRN IV 03/24/25 00:45 Piperacillin Sod/ Tazobactam Sod 100 ml @ 25 mls/hr Q8HR IV 03/24/25 06:00 03/24/25 05:04 25 MLS/HR Enoxaparin Sodium 110 mg Q12HR SC 03/24/25 10:00 03/24/25 09:55 110 MG Aspirin 81 mg DAILY PO 03/25/25 10:00 Magnesium Sulfate/ Dextrose 100 ml @ 100 mls/hr Q1HR IV 03/24/25 12:00 03/24/25 13:59 03/24/25 12:23 100 MLS/HR Digoxin 250 mcg Q6H IV 03/24/25 18:00 Laboratory Results Laboratory Tests 03/24/25 09:47 Chemistry Test 03/23/25 19:07 03/24/25 09:47 Albumin 3.6 g/dL (3.2-4.8) 3.5 g/dL (3.2-4.8) Calcium Level 8.7 mg/dL (8.7-10.4) 8.7 mg/dL (8.7-10.4) Total Protein 6.0 g/dL (5.7-8.2) 6.0 g/dL (5.7-8.2) Magnesium Level 2.5 mg/dL (1.6-2.6) Coagulation Test 03/23/25 19:07 Prothrombin Time 11.9 sec (9.3-11.8) H Prothrombin Time INR 1.14 (0.9-1.15) Activated Partial Thromboplast Time 27.1 SEC (24.5-34.5) Lipid panel Test 03/24/25 09:47 Cholesterol Level 60 mg/dL (< 200) HDL Cholesterol 14 mg/dL (40-59) L Triglycerides Level 108 mg/dL (< 150) Cardiac Markers Test 03/23/25 19:07 B-Type Natriuretic Peptide 261.46 pg/mL (0-100) LFT Test 03/23/25 19:07 03/24/25 09:47 Alanine Aminotransferase (ALT) 20 U/L (7-40) 15 U/L (7-40) Alkaline Phosphatase 94 U/L (46-116) 95 U/L (46-116) Aspartate Amino Transferase (AST) 34 U/L (13-40) 25 U/L (13-40) Total Bilirubin 0.7 mg/dL (0.2-1.0) 0.4 mg/dL (0.2-1.0) HgA1c, TSH Test 03/24/25 09:47 Hemoglobin A1c 6.6 % A1C (<5.7) H Thyroid Stimulating Hormone (TSH) 1.42 uIU/mL (0.55-4.78) Labs and/or images reviewed: Labs reviewed by me, Image(s) reviewed by me Assessment/Plan Assessment/Plan Sepsis with WBC 23 K secondary to cellulitis right lower extremity: Zosyn Acute on chronic decompensated heart failure (HFrEF) --(previous EF 40%) AFib with RVR, ? chronic vs paroxymal/transient, on BB cardiology consult appreciated, amiodarone drip metoprolol Lovenox Mildy elevated troponin, likely representing type 2 demand ischemia Non-sustained ventricular tachycardia Left inguinal lymphadenopathy BRODY possible CKD DM 2 well-controlled A1c 6.2 Right lower extremity diabetic ulcer Rule out PAD: Arterial ultrasound pending DVT ruled out hx of Falls Hypertension Type 2 diabetes Morbid obesity Time spent 70 minutes Advanced care planning time 20 minutes Plan discussed with: Patient Date of Service: Mar 24, 2025 Billing Provider: RIDGE LEGER MD Common Visit Codes: [id number] CARE 30-74 MIN RIDGE LEGER MD Mar 24, 2025 13:15
--- NOTE | 2025-03-24 13:17 | DVH ---
Indication: rule out pad Technique: Real- time ultrasound images of the lower extremity with grayscale, color, and spectral wave Doppler. Comparison: US LT LOWER DVT on DOS: 03/23/25 Findings: Biphasic/ triphasic waveforms in the right SFA, STUDIO CAMER[employer] OPERATOR, popliteal, dorsalis pedis, posterior tibial vicky kaylie. Biphasic/ triphasic waveforms in the left STUDIO CAMERA OPERATOR, SFA, popliteal arteries. Monophasic waveform i n the left posterior tibial artery. Left lower extremity soft tissue edema Peak systolic velocities are as follows (in cm/s): Right: Common femoral artery: 97 Profunda femoris: 52 Proximal superficial femoral: 76 Mid superficial femoral artery: 111 Distal superficial femoral artery: 99 Popliteal artery: 78 Posterior tibial artery: 74 Dorsalis pedis artery: 40 Left: Common femoral artery: 77 Profunda femoris: 90 Proximal superficial femoral: 118 Mid superficial femoral artery: 143 Distal superficial femoral artery: 121 Popliteal artery: 82 Posterior tibial artery: 118 Dorsalis pedis artery: 123 Impression: Monophasic waveform in the left posterior tibial artery may represent hemodynamically significant junior nosis. Left lower extremity soft tissue edema
[2025-03-24] MEDS: DIGOXIN (250MCG/ML) 2 ML AMPULE IV SCH (17:57)
--- NOTE | 2025-03-24 21:45 | DVHSR ---
APPROVED REPORT EXAM: Two-dimensional and M-mode echocardiogram with Doppler and color Doppler. Blood Pressure: 107/69 mmHg INDICATION CHF exacerbation, unspecified RISK FACTORS Height: 68, Weight: 251 DIMENSIONS LVDd5.1 (3.8-5.7cm)LA (2D) (1.9-4.0cm)Aortic Root4.3 (2.0-3.7cm) LVDs3.3 (2.5-4.0cm)LA (MM) (1.9-4.0cm)Aortic Cusp Exc2.6 (1.5-2.0cm) EF (%) 63.0 (55-70%)Rt. Atrium (1.9-4.0cm)Asc. Aorta cm IVSd1.4 (0.7-1.1cm)RV (D) (1.8-2.4cm) PWd1.6 (0.7-1.1cm) Mitral Valve MitralMitral Stenosis E wave0.64m/sMV Mean GR.mmHg E/A ratio0.02D MVAcm2 Aortic Valve Aortic ValveAortic Stenosis V10.76m/Ely Mean GR.3mmHg V21.29m/Ely Peak GR.7mmHg LVOT Diameter2.6 (1.8-2.4cm)Doppler AVA3.13cm2 Pulmonic Valve V20.76m/s Tricuspid Valve TR Velocity2.32m/s [id number] Other Information Technically limited study due to body habitus, patient position and patients high heart rate. 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
[2025-03-24] MEDS: ATORVASTATIN 20 MG TAB PO SCH (22:06)
--- NOTE | 2025-03-24 23:39 | DVHINCON2 ---
Date Seen: Mar 24, 2025 Referring Physician SHIV Pa Reason for Consultation Afib with rvr History of Present Illness This is a 64-year-old male with a past medical history of atrial fibrillation and congestive heart failure with reduced ejection fraction (EF 40%) presents to the emergency department via EMS with complaint of generalized weakness. Upon arrival, the patient was found to be in atrial fibrillation with rapid ventricular response (HR 144). Patient reports experiencing progressive fatigue over the past few days, as well as intermittent palpitations, shortness of breath, orthopnea, and worsening bilateral lower extremity swelling--more pronounced on the left side. Patient notes a recent fall while walking downstairs, resulting in a right lower extremity wound. Patient denies any chest pain but expresses concern about his increasing symptoms. Patient was hospitalized in November for CHF exacerbation and was told to follow-up with Cardiology in [place], where he was evaluated for possible Holter monitor, but this was never completed. He reports being adherent with his prescribed heart medications but was never started on anticoagulation. He lives alone but plans to relocate to live with his daughter in [place]. He denies tobacco, alcohol, or illicit drug use and states that he has not undergone any prior cardiac catheterization or stress testing. Patient was admitted to the hospital. I am asked to consult on this patient. Past Medical History As stated in HPI Past Surgical History Denies Family History: Chronic obstructive pulmonary disease G8 MOTHER, FH: cancer G8 FATHER, Allergies: Coded Allergies: NO KNOWN ALLERGIES (Unverified , 11/08/17) Home Meds Reported Medications Losartan Potassium (Losartan Potassium) 25 Mg Tab, 1 TAB PO DAILY 03/24/25 Insulin Lispro (Insulin Lispro Kwikpen) 100 Unit/Ml Inj, 5 UNIT SC TID 03/24/25 Insulin Glargine (Lantus Solostar) 100 Unit/Ml Inj, 32 UNITS SC HS TAKE THE FULL DOSE IF BS >140. TAKE 16 UNITS IF BS <140. 03/24/25 Metoprolol Succinate (Metoprolol Succinate Er) 50 Mg Tab, 1 TAB PO DAILY 03/24/25 Empagliflozin (Jardiance) 25 Mg Tab, 1 TAB PO DAILY 03/24/25 Spironolactone (Spironolactone) 25 Mg Tab, 1 TAB PO DAILY 03/24/25 Cholecalciferol (Vitamin D3) 1,000 Unit Tab, 1000 UNIT PO DAILY, TAB 03/24/25 Atorvastatin Calcium (ATORVASTATIN CALCIUM) 10 Mg Tab, 1 TAB PO DAILY 03/24/25 Current Medications Current Medications Medications (Trade) Dose Ordered Sig/Angeline Route PRN Reason Start Time Stop Time Status Last Admin Metoprolol Tartrate (Lopressor) 5 mg Q5M PRN IV x3 doses for afib 03/23/25 19:00 03/24/25 07:00 DC 03/23/25 20:13 Aspirin 81 mg DAILY PO 03/24/25 10:00 03/24/25 09:29 DC 03/24/25 08:19 Metoprolol Tartrate (Lopressor Tablet) 50 mg BID PO 03/24/25 10:00 03/24/25 09:58 Atorvastatin Calcium (Lipitor) 10 mg HS PO 03/24/25 22:00 Furosemide (Lasix Injection) 20 mg DAILY IV 03/24/25 10:00 Diagnostic Test (Pha) (Accu-Chek Comfort Curve T) 1 strip IQ4HR 03/24/25 04:00 03/24/25 12:02 Insulin Human Regular (InsuLIN R) IQ4HR SC 03/24/25 04:00 03/24/25 12:22 Dextrose 50 ml UD PRN IV Blood Sugar LESS THAN 60 03/24/25 00:45 Sodium Chloride (Saline Lock Ns) 10 ml Q8HR IV 03/24/25 06:00 03/24/25 05:04 Acetaminophen/ Hydrocodone Bitart (Morton 5/325MG Tab) 1 tab Q4HP PRN PO MODERATE PAIN (4-6 PAIN SCALE) 03/24/25 00:45 Ondansetron HCl (Zofran) 4 mg Q4HP PRN IV NAUSEA / VOMITING 03/24/25 00:45 Docusate Sodium (Colace Capsule) 100 mg BIDPRN PRN PO FOR CONSTIPATION 03/24/25 00:45 Acetaminophen (Tylenol Tablet) 650 mg Q6HP PRN PO PAIN SCALE 1-3 OR TEMP>100.4 03/24/25 00:45 Nitroglycerin (Ntrostat Sublingual) 0.4 mg Q5MINP PRN SL FOR CHEST PAIN 03/24/25 00:45 Morphine Sulfate 2 mg Q30M PRN IV FOR CHEST PAIN 03/24/25 00:45 Piperacillin Sod/ Tazobactam Sod 100 ml @ 25 mls/hr Q8HR IV 03/24/25 06:00 03/24/25 05:04 Enoxaparin Sodium (Lovenox) 110 mg Q12HR SC 03/24/25 10:00 03/24/25 09:55 Aspirin 81 mg DAILY PO 03/25/25 10:00 Magnesium Sulfate/ Dextrose 100 ml @ 100 mls/hr Q1HR IV 03/24/25 12:00 03/24/25 13:59 DC 03/24/25 12:23 Digoxin (Lanoxin Injection) 250 mcg Q6H IV 03/24/25 18:00 Review of Systems Constitutional: Fatigue and recent falls. Denies fever or chills. Ears, Nose, & Throat: No symptom reported Eyes: No symptom reported Neurological: No symptoms reported Pulmonary/Respiratory: Shortness of breath, orthopnea. Cardiovascular: Palpitations and bilateral lower extremity edema. Denies chest Gastrointestinal: No symptom reported Genitourinary: No symptom reported Musculoskeletal: Right lower extremity wound from fall. Positive bilateral leg swelling Skin: Left lower extremity erythema and scaling noted. Right lower extremity wound reported Psychiatric: No symptom reported Endocrine: No symptom reported Hemotologic/Lymphatic: Left inguinal lymphadenopathy Vital Signs Vital Signs Date Time Temp Pulse Resp B/P (MAP) Pulse Ox O2 Delivery O2 Flow Rate FiO2 03/24/25 13:00 98.0 136 16 111/68 (82) 96 98.0 03/24/25 08:00 Room Air* 0 21 Physical Exam GENERAL: Alert and oriented x 3. No acute distress. Obese. EYES: PERRL, EOMI. Anicteric. HENT: Moist mucous membranes. LUNGS: Clear to auscultation bilaterally. CARDIOVASCULAR: Irregular rate and rhythm. ABDOMEN: Soft, nontender and nondistended. EXTREMITIES: LLE 4+ pitting edema, erythema, scaling. RLE 2+ pitting edema. NEUROLOGIC: No focal neurological deficits. SKIN: Warm, dry. Wound on lower leg. Labs/Diagnostic Data Labs Test 03/24/25 12:00 03/24/25 09:47 03/23/25 19:07 Range/Units POC Glucose 221 H 70-106 mg/dl White Blood Count 20.2 H 4.4-10.8 10^3/uL Red Blood Count 4.38 L 4.5-5.90 10^6/uL Hemoglobin 12.9 L 13.5-17.5 g/dL Hematocrit 38.6 L 41.0-53.0 % Mean Corpuscular Volume 88.0 80.0-100.0 fL Mean Corpuscular Hemoglobin 29.3 28.0-32.0 pg Mean Corpuscular Hemoglobin Concent 33.3 32.0-36.0 g/dL Red Cell Distribution Width 14.6 H 11.8-14.3 % Platelet Count 247 140-450 10^3/uL Mean Platelet Volume 8.0 6.9-10.8 fL Neutrophils (%) (Auto) 89.5 H 37.0-80.0 % Lymphocytes (%) (Auto) 3.4 L 10.0-50.0 % Monocytes (%) (Auto) 7.0 0.0-12.0 % Eosinophils (%) (Auto) 0.0 0.0-7.0 % Basophils (%) (Auto) 0.1 0.0-2.0 % Neutrophils # (Auto) 18.1 H 1.6-8.6 10 ^3/uL Lymphocytes # (Auto) 0.7 0.4-5.4 10 ^3/uL Monocytes # (Auto) 1.4 H 0-1.3 10 ^3/uL Eosinophils # (Auto) 0 0-0.8 10 ^3/uL Basophils # (Auto) 0 0-0.2 10 ^3/uL Nucleated Red Blood Cells 0.0 % Sodium Level 137 136-145 mmol/L Potassium Level 3.4 L 3.5-5.1 mmol/L Chloride Level 103 98-107 mmol/L Carbon Dioxide Level 23 20-31 mmol/L Anion Gap 11 5-15 Blood Urea Nitrogen 30 #H 9-23 mg/dL Creatinine 0.98 0.700-1.30 mg/dL Glomerular Filtration Rate Calc 87 >90 mL/min BUN/Creatinine Ratio 30.6 H 10.0-20.0 Serum Glucose 174 H 74-106 mg/dL Hemoglobin A1c 6.6 H <5.7 % A1C Calcium Level 8.7 8.7-10.4 mg/dL Magnesium Level 2.5 1.6-2.6 mg/dL Total Bilirubin 0.4 0.2-1.0 mg/dL Aspartate Amino Transferase (AST) 25 13-40 U/L Alanine Aminotransferase (ALT) 15 7-40 U/L Alkaline Phosphatase 95 46-116 U/L Troponin I High Sensitivity 37 </=54 ng/L Total Protein 6.0 5.7-8.2 g/dL Albumin 3.5 3.2-4.8 g/dL Triglycerides Level 108 < 150 mg/dL Cholesterol Level 60 < 200 mg/dL LDL Cholesterol 15 < 100 mg/dL HDL Cholesterol 14 L 40-59 mg/dL Thyroid Stimulating Hormone (TSH) 1.42 0.55-4.78 uIU/mL Prothrombin Time 11.9 H 9.3-11.8 sec Prothrombin Time INR 1.14 0.9-1.15 Activated Partial Thromboplast Time 27.1 24.5-34.5 SEC B-Type Natriuretic Peptide 261.46 0-100 pg/mL Assessment Acute on chronic decompensated heart failure (HFrEF) --(previous EF 40%) . AFib with RVR, ? chronic vs paroxymal/transient, on BB (CHADS-VASc score 3, HAS- BLED 1). Mildy elevated troponin, likely representing type 2 demand ischemia. Non-sustained ventricular tachycardia. Left inguinal lymphadenopathy. BRODY possible CKD. Right lower extremity diabetic ulcer. Rule out PAD. DVT, ruled out. History of Falls. Hypertension. Type 2 diabetes. Morbid obesity. Plan/Recommendation I agree with your ongoing assessment and care of plan. Patient has been seen by Tesha De Paz NP on my behalf, her and I discussed the plan with the patient. Despite being on amiodarone drip 0.5mg/min and metoprolol 50 mg p.o. b.i.d., patient remains AFib with sustained heart rate in 130-140s. Additionally, telemetry capture brief nonsustained VT (5 beats). BP pressure is currently borderline at 102/52mmHg, limiting further escalation of beta lauren therapy. We will initiate rate control with digoxin. AFib with RVR. Continue amiodarone drip at 0.5mg/min. Continue metoprolol tartrate 50 b.i.d. (no titration due to SBP 102/52). Initiate IV digoxin loading and additional rate control due to persistent heart rate in 130-140s and limited BP tolerance. Monitor for bradycardia, signs of digoxin toxicity. Check Digoxin level on 03/26/25. Therapeutic Lovenox. Monitor QTc on telemetry/ECG. Educate patient on AF-related stroke risk and need for long-term anticoagulation. NSVT . Continue amiodarone drip. Monitor telemetry for recurrent VT or hemodynamically stability. Magnesium 2 g IV x1 dose. Ensure electrolytes are optimized (goa; k+ .4.0, Mg > 2.0). HFrEF. Continue IV diuresis. Continue/optimize GDMT once BP stabilizes given soft BP. Repeat transthoracic echocardiogram to assess EF and cardiac function. Type 2 NSTEMI (suspected). Trend troponins and monitor for chest pain or ECG changes. Further cardiac risk stratification. TSH, lipid panel, and A1c ordered for secondary risk factor evaluation and optimization. Continue statins. Peripheral vascular concern. Bilateral LE edema, left inguinal lymphedema. Arterial Doppler of lower extremity ordered to assess for PAD. Further ischemic workup if symptoms persist or EF worsens on echo. Close cardiac monitoring. Additional plan as per the hospital course. Plan discussed with: Patient NYHA Physical activity limitations: Class3(Marked) ordinary Date of Service: Mar 24, 2025 Billing Provider: CLINT LOUISE MD Cardiology Common Codes: [id number] INP/OBS CARE (High) Cardiology Consultation Codes: [id number] CONSULT <45MIN CLINT LOUISE MD Mar 24, 2025 14:12
[2025-03-25] VITALS (8 sets, daily range): BP systolic 99–128; BP diastolic 61–79; PULSE 63–127; RESP 17–19; TEMP 97.8–98.9; O2SAT 94–97
[2025-03-25 03:57] LABS: Urine Protein, UAD TRACE (Negative)
[2025-03-25] MEDS: HYDROcodone-ACET 5/325MG TAB PO PRN (05:53)
--- NOTE | 2025-03-25 08:10 | DVHPNRES ---
Progress Note Subjective Review of Systems Zenon durant is a 64-year-old male with past medical history of Tachycardia, tachypnea, hypotension on admission Previous hospitalization: PMHx: PSHx: Family history: Social history: Home medication: atorvastatin, Jardiance, metoprolol succinate, spironolactone, losartan, insulin, furosemide, ibuprofen, vitamin-D Allergic history: He was examined at bedside today. Vitals show tachycardia. Objective vital signs Vital Sign Date Time Temp Pulse Resp B/P (MAP) Pulse Ox O2 Delivery O2 Flow Rate FiO2 03/25/25 05:58 125 03/25/25 05:00 98.6 18 128/71 (90) 94 98.6 03/24/25 20:00 Room Air* 0 21 Total Intake and Output 03/24/25 03/24/25 03/25/25 15:00 23:00 07:00 Intake Total 100 ml 2126.64 ml 1316.62 ml Output Total 1375 ml 300 ml Balance 100 ml 751.64 ml 1016.62 ml medications Current Medications Medications Dose Ordered Sig/Angeline Route Start Time Stop Time Status Last Admin Dose Admin Metoprolol Tartrate 50 mg BID PO 03/24/25 10:00 03/24/25 22:05 50 MG Atorvastatin Calcium 10 mg HS PO 03/24/25 22:00 03/24/25 22:06 10 MG Furosemide 20 mg DAILY IV 03/24/25 10:00 Diagnostic Test (Pha) 1 strip IQ4HR 03/24/25 04:00 03/25/25 03:55 1 STRIP Insulin Human Regular IQ4HR SC 03/24/25 04:00 03/25/25 03:59 3 UNITS Dextrose 50 ml UD PRN IV 03/24/25 00:45 Sodium Chloride 10 ml Q8HR IV 03/24/25 06:00 03/25/25 06:00 10 ML Acetaminophen/ Hydrocodone Bitart 1 tab Q4HP PRN PO 03/24/25 00:45 03/25/25 05:53 1 TAB Ondansetron HCl 4 mg Q4HP PRN IV 03/24/25 00:45 Docusate Sodium 100 mg BIDPRN PRN PO 03/24/25 00:45 Acetaminophen 650 mg Q6HP PRN PO 03/24/25 00:45 Nitroglycerin 0.4 mg Q5MINP PRN SL 03/24/25 00:45 Morphine Sulfate 2 mg Q30M PRN IV 03/24/25 00:45 Piperacillin Sod/ Tazobactam Sod 100 ml @ 25 mls/hr Q8HR IV 03/24/25 06:00 03/25/25 05:54 25 MLS/HR Enoxaparin Sodium 110 mg Q12HR SC 03/24/25 10:00 03/24/25 22:06 110 MG Aspirin 81 mg DAILY PO 03/25/25 10:00 laboratory and microbiology Laboratory Tests 03/24/25 09:47 Test 03/24/25 09:47 Range/Units Serum Glucose 174 H 74-106 mg/dL Microbiology Date/Time Source Procedure Growth Status 03/24/25 01:06 Blood Blood Culture - Preliminary NO GROWTH AFTER 24 HOURS OF INCUBATION. Resulted Problem List/Assessment/Plan Problem List/Assessment/Plan essential hypertension tachycardia on admission Continue aspirin, atorvastatin, metoprolol neutrophilic leukocytosis started on Zosyn Elevated PT diabetes mellitus A1c 6.6 mild glucosuria, ketonuria hypokalemia Elevated BUN Low HDL TSH WNL lower extremity artery Doppler revealed: Monophasic waveform in the left posterior tibial artery may represent hemodynamically significant stenosis. Left lower extremity soft tissue edema head CT showed no intracranial process echo shows: MODERATELY DILATED RV AND IS HYPOKINETIC DYSKINESIS OF IVS HYPERDYNAMIC LV LV EF IS 60% NORMAL VALVES NO EFFUSION RVSP IS 21 MM OF HG DIET: Regular Liquid DVT PROPHYLAXIS: Lovenox GI PROPHYLAXIS: Protonix BOWEL REGIMEN: Colace CODE STATUS: Goals of care discussed with patient at bedside for more than 25 minutes. Full code DISPOSITION: Med/surge Patient's status and plan discussed with the patient. Case discussed with Dr. Johan. GABRIELDAPHNE RESIDENT Mar 25, 2025 08:10
[2025-03-25 08:49] LABS: Hematocrit 39.2 % (41.0-53.0); Hemoglobin 13.1 g/dL (13.5-17.5); Mean Corpuscular Hemoglobin 29.9 pg (28.0-32.0); Mean Corpuscular Volume 89.7 fL (80.0-100.0); Nucleated Red Blood Cells % 0.0 %
[2025-03-25 09:09] LABS: Alanine Aminotransferase 16 U/L (7-40); Albumin 3.3 g/dL (3.2-4.8); Alkaline Phosphatase 85 U/L (46-116); Anion Gap 11 (5-15); BUN/Creatinine Ratio 24.1 (10.0-20.0); Bilirubin, Total 0.6 mg/dL (0.2-1.0); Blood Urea Nitrogen 19 mg/dL (9-23); Calcium 8.5 mg/dL (8.7-10.4); Carbon Dioxide 23 mmol/L (20-31); Chloride 100 mmol/L (98-107); Glucose 124 mg/dL (74-106); Potassium 3.6 mmol/L (3.5-5.1); Sodium 134 mmol/L (136-145); Total Protein 5.9 g/dL (5.7-8.2)
--- NOTE | 2025-03-25 09:56 | DVHPN2 ---
Reviewed: Care Plan, H&P, Labs, Medications, Previous Orders, Radiology Changes from previous H/P or p: No Changes Eyes: No Pain, No Vision change, No Conjunctivae inflammation, No Eyelid inflammation, No Other, No Redness ENT: No Ear pain, No Ear discharge, No Nose pain, No Nose discharge, No Nose congestion, No Mouth pain, No Mouth swelling, No Throat pain, No Throat swelling, No Other Cardiovascular: No Chest Pain, No Palpitations, No Orthopnea, No Paroxysmal Noc. Dyspnea; Edema; No Lt Headedness, No Other Respiratory: No Cough, No Dry, No Shortness of breath, No SOB with excertion, No Wheezing, No Hemoptysis, No Pleuritic Pain, No Sputum, No Other Gastrointestinal: No Nausea, No Vomiting, No Abdominal Pain, No Diarrhea, No Constipation, No Melena, No Hematochezia, No Other Genitourinary: No Dysuria, No Frequency, No Incontinence, No Hematuria, No Retention, No Other Musculoskeletal: No other, No neck pain, No shoulder pain, No arm pain, No back pain, No hand pain, No leg pain, No foot pain Skin: No Rash, No Lesions, No Jaundice, No Bruising, No Other Objective Vitals Vital Signs Date Time Temp Pulse Resp B/P (MAP) Pulse Ox O2 Delivery O2 Flow Rate FiO2 03/25/25 09:32 112/62 03/25/25 09:31 97 03/25/25 08:54 98.7 18 97 98.7 03/24/25 20:00 Room Air* 0 21 Intake/Output Intake and Output 03/25/25 07:00 Intake Total 3543.26 ml Output Total 1675 ml Balance 1868.26 ml Intake Oral 3060 ml IV Total 483.26 ml Output Urine Total 1675 ml Medications Current Medications Medications Dose Ordered Sig/Angeline Route Start Time Stop Time Status Last Admin Dose Admin Metoprolol Tartrate 50 mg BID PO 03/24/25 10:00 03/25/25 09:31 50 MG Atorvastatin Calcium 10 mg HS PO 03/24/25 22:00 03/24/25 22:06 10 MG Furosemide 20 mg DAILY IV 03/24/25 10:00 03/25/25 09:32 20 MG Diagnostic Test (Pha) 1 strip IQ4HR 03/24/25 04:00 03/25/25 08:00 1 STRIP Insulin Human Regular IQ4HR SC 03/24/25 04:00 03/25/25 09:31 3 UNITS Dextrose 50 ml UD PRN IV 03/24/25 00:45 Sodium Chloride 10 ml Q8HR IV 03/24/25 06:00 03/25/25 06:00 10 ML Acetaminophen/ Hydrocodone Bitart 1 tab Q4HP PRN PO 03/24/25 00:45 03/25/25 05:53 1 TAB Ondansetron HCl 4 mg Q4HP PRN IV 03/24/25 00:45 Docusate Sodium 100 mg BIDPRN PRN PO 03/24/25 00:45 Acetaminophen 650 mg Q6HP PRN PO 03/24/25 00:45 Nitroglycerin 0.4 mg Q5MINP PRN SL 03/24/25 00:45 Morphine Sulfate 2 mg Q30M PRN IV 03/24/25 00:45 Piperacillin Sod/ Tazobactam Sod 100 ml @ 25 mls/hr Q8HR IV 03/24/25 06:00 03/25/25 05:54 25 MLS/HR Enoxaparin Sodium 110 mg Q12HR SC 03/24/25 10:00 03/25/25 09:31 110 MG Aspirin 81 mg DAILY PO 03/25/25 10:00 03/25/25 09:32 81 MG Laboratory Results Laboratory Tests 03/25/25 08:15 Chemistry Test 03/25/25 08:15 Albumin 3.3 g/dL (3.2-4.8) Calcium Level 8.5 mg/dL (8.7-10.4) L Magnesium Level 2.5 mg/dL (1.6-2.6) Total Protein 5.9 g/dL (5.7-8.2) Cardiac Markers Test 03/25/25 08:15 B-Type Natriuretic Peptide Pending LFT Test 03/25/25 08:15 Alanine Aminotransferase (ALT) 16 U/L (7-40) Alkaline Phosphatase 85 U/L (46-116) Aspartate Amino Transferase (AST) 26 U/L (13-40) Total Bilirubin 0.6 mg/dL (0.2-1.0) Urinalysis Test 03/25/25 03:20 Urine Color Yellow (Yellow) Urine Clarity Clear (Clear) Urine pH 6.5 (5.0-9.0) Urine Specific Solomon 1.042 (1.001-1.035) Urine Protein Trace (Negative) H Urine Ketones 1+ (Negative) H Urine Blood Negative /uL (Negative) Urine Nitrite Negative (Negative) Urine Bilirubin Negative (Negative) Urine Urobilinogen Normal mg/dL (Negative) Urine Leukocyte Esterase Negative /uL (Negative) Urine RBC 2 /hpf (0 - 3) Urine Microscopic WBC 1 /HPF (0-3) Urine Squamous Epithelial Cells None seen /hpf (<5) Urine Bacteria None seen /hpf (None Seen) Urine Glucose 4+ mg/dL (Normal) H Microbiology Microbiology Date/Time Source Procedure Growth Status 03/24/25 01:06 Blood Blood Culture - Preliminary NO GROWTH AFTER 24 HOURS OF INCUBATION. Resulted Labs and/or images reviewed: Labs reviewed by me, Image(s) reviewed by me Assessment/Plan Assessment/Plan Sepsis with WBC 23 K secondary to cellulitis right lower extremity: Zosyn Acute on chronic decompensated heart failure (HFrEF) --(previous EF 40%) AFib with RVR, ? 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 Mckeon Patient used to live with his brother who recently Patient's daughter is an RN who lives in [place] DVT ruled out hx of Falls Hypertension Type 2 diabetes Morbid obesity Time spent 70 minutes Advanced care planning time 20 minutes Plan discussed with: Patient My Orders Orders - RIDGE LEGER MD Procedure Category Date Status Time Cleanse Wound With SERA 03/24/25 In Process Wound Clean 17:32 Apply Z-Guard SERA 03/24/25 In Process 13:13 * Dietary Consult CONS 03/24/25 Transmitted 17:32 Date of Service: Mar 25, 2025 Billing Provider: RIDGE LEGER MD Common Visit Codes: [id number] INP/OBS CARE(HIGH) RIDGE LEGER MD Mar 25, 2025 09:56
[2025-03-25] MEDS ORDERED: VANCOMYCIN PER PHARMACY 0 MG IV SCH (10:15)
--- NOTE | 2025-03-25 10:21 | ECG ---
[facility] Test Date: 2025-03-23 Test Time: 19:45:52 Pat Name: SAVAGE DE ANDA Department: ED Room: 0223T B Gender: M Host And Hostess: FLORIAN : 1960 Requested By: DIANE MYLES Order Number: [id number] Reading MD: Javier Victoria Measurements Intervals [place] Rate: 143 P: 0 VA: 0 QRS: -61 QRSD: 99 T: 77 QT: 300 QTc: 463 Interpretive Statements Atrial fibrillation Left anterior fascicular block Abnormal R-wave progression, late transition Abnormal lateral Q waves Electronically Signed On 03-25-2025 22:57:19 PDT by Javier Victoria Please click the below link to view image of tracing.
--- NOTE | 2025-03-25 10:23 | ECG ---
[facility] Test Date: 2025-03-23 Test Time: 18:41:50 Pat Name: SAVAGE DE ANDA Department: Room: 0223T B Gender: M [employer] Attendant: SONIA : 1960 Requested By: DAPHNE GABRIEL Order Number: [id number] Reading MD: Javier Victoria Measurements Intervals [place] Rate: 175 P: 0 MS: 0 QRS: -71 QRSD: 93 T: 62 QT: 275 QTc: 470 Interpretive Statements Atrial fibrillation with rapid V-rate Left anterior fascicular block Abnormal R-wave progression, late transition Electronically Signed On 03-25-2025 22:56:41 PDT by Javier Victoria Please click the below link to view image of tracing.
[2025-03-25] MEDS ORDERED: VANCOMYCIN 1GM/200ML PM 250 ML IV SCH ×2 (10:45→13:15)
--- NOTE | 2025-03-25 11:17 | DVHPN2 ---
Consult Progress Note Date Seen: Mar 25, 2025 Subjective Review of Systems: CVS:Normal, RESPIRATORY:Normal, NEURO:Normal Other Systems: Denies any cardiac symptoms Objective vital signs Vital Sign Date Time Temp Pulse Resp B/P (MAP) Pulse Ox O2 Delivery O2 Flow Rate FiO2 03/25/25 09:32 112/62 03/25/25 09:31 97 03/25/25 08:54 98.7 18 97 98.7 03/24/25 20:00 Room Air* 0 21 Total Intake and Output 03/24/25 03/24/25 03/25/25 15:00 23:00 07:00 Intake Total 100 ml 2126.64 ml 1316.62 ml Output Total 1375 ml 300 ml Balance 100 ml 751.64 ml 1016.62 ml medications Current Medications Medications Dose Ordered Sig/Angeline Route Start Time Stop Time Status Last Admin Dose Admin Metoprolol Tartrate 50 mg BID PO 03/24/25 10:00 03/25/25 09:31 50 MG Atorvastatin Calcium 10 mg HS PO 03/24/25 22:00 03/24/25 22:06 10 MG Furosemide 20 mg DAILY IV 03/24/25 10:00 03/25/25 09:32 20 MG Diagnostic Test (Pha) 1 strip IQ4HR 03/24/25 04:00 03/25/25 08:00 1 STRIP Insulin Human Regular IQ4HR SC 03/24/25 04:00 03/25/25 09:31 3 UNITS Dextrose 50 ml UD PRN IV 03/24/25 00:45 Sodium Chloride 10 ml Q8HR IV 03/24/25 06:00 03/25/25 06:00 10 ML Acetaminophen/ Hydrocodone Bitart 1 tab Q4HP PRN PO 03/24/25 00:45 03/25/25 05:53 1 TAB Ondansetron HCl 4 mg Q4HP PRN IV 03/24/25 00:45 Docusate Sodium 100 mg BIDPRN PRN PO 03/24/25 00:45 Acetaminophen 650 mg Q6HP PRN PO 03/24/25 00:45 Nitroglycerin 0.4 mg Q5MINP PRN SL 03/24/25 00:45 Morphine Sulfate 2 mg Q30M PRN IV 03/24/25 00:45 Enoxaparin Sodium 110 mg Q12HR SC 03/24/25 10:00 03/25/25 09:31 110 MG Aspirin 81 mg DAILY PO 03/25/25 10:00 03/25/25 09:32 81 MG Vancomycin HCl 0 ml @ 0 mls/hr UD IV 03/25/25 10:15 Vancomycin HCl 250 ml @ 250 mls/hr Q1H IV 03/25/25 10:45 03/25/25 12:44 Examination: GENERAL:Abnormal, LUNGS:Normal, CVS:Abnormal (A-fib 110s bpm), SKIN:Abnormal (LLE erythema from foot extending to inner thigh. + BLE wounds (see wound care documentation)), NEURO:Normal laboratory and microbiology Laboratory Tests 03/25/25 08:15 Test 03/25/25 08:15 Range/Units Serum Glucose 124 H 74-106 mg/dL Problem List/Assessment/Plan Problem List/Assessment/Plan AFib with RVR, likely persistent, on BB (CHADS-VASc score 3, HAS-BLED 1) Acute on chronic decompensated heart failure (HFrecEF), NYHA Class II Mildy elevated troponin, likely representing type 2 demand ischemia LLE peripheral arterial disease with associated diabetic ulcer Non-sustained ventricular tachycardia x 5 beats Right lower extremity diabetic ulcer Left inguinal lymphadenopathy Likley BRODY on CKD DVT, ruled out hx of Falls Hypertension Type 2 diabetes Medical non-compliance Morbid obesity Plan/Recommendation (Dr. Summers) AFib with RVR * Antiarrhythmic, transition to amiodarone p.o. * Rate control, metoprolol tartrate 50 b.i.d. and digoxin therapy EOD * Monitor QTc on telemetry/ECG * Therapeutic Lovenox. Transition to NOAC therapy when appropriate * Educate patient on AF-related stroke risk and need for long-term anticoagulation * Likely persistent AF-has not transitioned since initiation of antiarrhythmic therapy NSVT * Continue Telemetry monitoring and notify accordingly * Ensure electrolytes are optimized (goa; k+ .4.0, Mg > 2.0) HFrecEF * Transthoracic echocardiogram revealed LVEF 60% * Moderately dilated RV and is hypokinetic * Continue/optimize GDMT for HFrecEF * Outpatient ischemic work-up with primary facility rehab director Peripheral arterial disease with associated LLE wound * Scheduled for a peripheral angiogram at first available * Continue single-antiplatelet therapy and high intensity statin Scheduled for a peripheral angiogram at first available. All risks and benefits of the procedure were discussed in full detail with the patient and daughter over the phone who agrees to proceed with intervention. All questions answered. Further orders per clinical course. Thank you for allowing us to care for this patient, please call with any questions or concerns. This medical document was created using an electronic medical record system with voice recognition software and computerized dictation system. Although this document has been carefully reviewed, there might still be some phonetic and typographical errors. Occasional wrong-word or ``sound-alike substitutions may have occurred due to the inherent limitations of voice recognition software. These areas are purely typographical due to imperfections of the software programs and do not reflect any compromise in the patient's medical care. Please read the chart carefully and recognize, using context, where these substitutions have occurred. Plan discussed with: Patient, Daughter, Other Date of Service: Mar 25, 2025 Billing Provider: ROSARIO MEAD Cardiology Common Codes: [id number] HOSP CARE(High ROSARIO MEAD Mar 25, 2025 11:17
[2025-03-25] MEDS: IODIXANOL 320MG/ML 100ML BTL IV ONE (11:57)
[2025-03-25] MEDS: HEPARIN IN NS 1000Units/500mL 0 ML ONE (11:58)
[2025-03-25] MEDS: POTASSIUM CHL 20 Meq TABLET PO ONE (12:29)
[2025-03-25] MEDS: AMIODARONE HCL 200 MG TAB PO ONE (12:30)
[2025-03-25] MEDS: VANCOMYCIN 1GM/250ML KIT 250 ML IV SCH ×2 (14:18→23:53)
--- NOTE | 2025-03-25 22:40 | DVHPN2 ---
Consult Progress Note Date Seen: Mar 25, 2025 Subjective Other Systems: Patient was seen and evaluated in follow up. Denies any cardiac symptoms. Patient is pending peripheral angiogram. WBC 19.6. Telemetry reviewed. Objective vital signs Vital Sign Date Time Temp Pulse Resp B/P (MAP) Pulse Ox O2 Delivery O2 Flow Rate FiO2 03/25/25 20:00 127 03/25/25 16:59 97.8 19 108/79 (89) 96 97.8 03/25/25 08:00 Room Air* 0 21 Total Intake and Output 03/24/25 03/24/25 03/25/25 15:00 23:00 07:00 Intake Total 100 ml 2126.64 ml 1316.62 ml Output Total 1375 ml 300 ml Balance 100 ml 751.64 ml 1016.62 ml medications Current Medications Medications Dose Ordered Sig/Angeline Route Start Time Stop Time Status Last Admin Dose Admin Metoprolol Tartrate 50 mg BID PO 03/24/25 10:00 03/25/25 09:31 50 MG Diagnostic Test (Pha) 1 strip IQ4HR 03/24/25 04:00 03/25/25 20:11 1 STRIP Insulin Human Regular IQ4HR SC 03/24/25 04:00 03/25/25 20:11 3 UNITS Dextrose 50 ml UD PRN IV 03/24/25 00:45 Sodium Chloride 10 ml Q8HR IV 03/24/25 06:00 03/25/25 12:30 10 ML Acetaminophen/ Hydrocodone Bitart 1 tab Q4HP PRN PO 03/24/25 00:45 03/25/25 18:45 1 TAB Ondansetron HCl 4 mg Q4HP PRN IV 03/24/25 00:45 Docusate Sodium 100 mg BIDPRN PRN PO 03/24/25 00:45 Acetaminophen 650 mg Q6HP PRN PO 03/24/25 00:45 Nitroglycerin 0.4 mg Q5MINP PRN SL 03/24/25 00:45 Morphine Sulfate 2 mg Q30M PRN IV 03/24/25 00:45 Aspirin 81 mg DAILY PO 03/25/25 10:00 03/25/25 09:32 81 MG Vancomycin HCl 0 ml @ 0 mls/hr UD IV 03/25/25 10:15 Vancomycin HCl 250 ml @ 250 mls/hr Q1H IV 03/25/25 10:45 03/25/25 12:44 Cancel Atorvastatin Calcium 40 mg HS PO 03/25/25 22:00 Digoxin 0.125 mg EOD PO 03/26/25 10:00 Amiodarone HCl 200 mg Q12HR PO 03/25/25 22:00 Furosemide 20 mg DAILY PO 03/26/25 10:00 Vancomycin HCl 250 ml @ 250 mls/hr Q1H IV 03/25/25 13:15 03/25/25 15:14 Cancel Vancomycin HCl 250 ml @ 250 mls/hr Q8H IV 03/26/25 00:00 Examination: GENERAL:Normal, HEENT:Normal, NECK:Normal, LUNGS:Normal, CVS:Abnormal (A-fib 110s bpm), ABDOMEN:Normal, SKIN:Abnormal (LLE erythema from foot extending to inner thigh. + BLE wounds (see wound care documentation)), NEURO:Normal laboratory and microbiology Laboratory Tests 03/25/25 08:15 Test 03/25/25 08:15 Range/Units Serum Glucose 124 H 74-106 mg/dL Problem List/Assessment/Plan Problem List/Assessment/Plan AFib with RVR, likely persistent, on BB (CHADS-VASc score 3, HAS-BLED 1). Acute on chronic decompensated heart failure (HFrecEF), NYHA Class II. Mildly elevated troponin, likely representing type 2 demand ischemia. LLE peripheral arterial disease with associated diabetic ulcer. Non-sustained ventricular tachycardia x 5 beats. Right lower extremity diabetic ulcer. Left inguinal lymphadenopathy. Likely BRODY on CKD. DVT, ruled out. History of Falls. Hypertension. Type 2 diabetes. Medical non-compliance. Morbid obesity. Plan/Recommendation Continued all current supportive medical care. Patient has been seen by Jess Jacome NP on my behalf. We have discussed the plan with the patient. Scheduled for a peripheral angiogram at first available. All risks and benefits of the procedure were discussed in full detail with the patient and daughter over the phone who agrees to proceed with intervention. All questions answered. =please call with any questions or concerns. Antiarrhythmic, transition to amiodarone p.o. Rate control, metoprolol tartrate 50 b.i.d. and digoxin therapy EOD. Monitor QTc on telemetry/ECG. Therapeutic Lovenox. Transition to NOAC therapy when appropriate. Educate patient on AF-related stroke risk and need for long-term anticoagulation. Likely persistent AF-has not transitioned since initiation of antiarrhythmic therapy. Continue Telemetry monitoring and notify accordingly. Ensure electrolytes are optimized (goa; k+ .4.0, Mg > 2.0). Transthoracic echocardiogram revealed LVEF 60%. Moderately dilated RV and is hypokinetic. Continue/optimize GDMT for HFrecEF. Outpatient ischemic work-up with primary farm facility manager. Scheduled for a peripheral angiogram at first available. Continue single-antiplatelet therapy and high intensity statin. Additional plan as per the hospital course. Plan discussed with: Patient Dietary Evaluation Review Comments: CCHO-60 cardiac diet with Isai BID Expected Outcomes/Goals: controlled DM, healed wound, gradual wt loss Date of Service: Mar 25, 2025 Billing Provider: CLINT LOUISE MD Cardiology Common Codes: [id number] HOSP CARE(High CLINT LOUISE MD Mar 25, 2025 22:40
[2025-03-25] MEDS: ATORVASTATIN 20 MG TAB PO SCH (23:16)
[2025-03-25] MEDS: AMIODARONE HCL 200 MG TAB PO SCH (23:16)
[2025-03-26] VITALS (12 sets, daily range): BP systolic 105–137; BP diastolic 64–85; PULSE 63–134; RESP 14–19; TEMP 98.1–98.8; O2SAT 94–98
[2025-03-26 06:30] LABS: Hematocrit 37.8 % (41.0-53.0); Hemoglobin 12.8 g/dL (13.5-17.5); Mean Corpuscular Hemoglobin 29.9 pg (28.0-32.0); Mean Corpuscular Volume 88.0 fL (80.0-100.0); Nucleated Red Blood Cells % 0.1 %
[2025-03-26 06:40] LABS: Alanine Aminotransferase 15 U/L (7-40); Albumin 3.2 g/dL (3.2-4.8); Alkaline Phosphatase 86 U/L (46-116)
[2025-03-26 06:41] LABS: Anion Gap 10 (5-15); BUN/Creatinine Ratio 22.9 (10.0-20.0); Bilirubin, Total 0.8 mg/dL (0.2-1.0); Blood Urea Nitrogen 16 mg/dL (9-23); Carbon Dioxide 25 mmol/L (20-31); Chloride 100 mmol/L (98-107); Magnesium 2.3 mg/dL (1.6-2.6); Potassium 3.8 mmol/L (3.5-5.1); Total Protein 5.9 g/dL (5.7-8.2)
[2025-03-26 06:43] LABS: Calcium 8.5 mg/dL (8.7-10.4); Glucose 108 mg/dL (74-106); Sodium 135 mmol/L (136-145)
[2025-03-26] MEDS: POTASSIUM CHL 20 Meq TABLET PO ONE (08:25)
[2025-03-26] MEDS: DIGOXIN 0.125 MG TAB PO SCH (08:26)
[2025-03-26] MEDS ORDERED: METOPROLOL TARTRATE 1MG/1ML-5ML VIAL IV PRN (08:30)
[2025-03-26] MEDS ORDERED: DEXTROSE (50%) 50ML SYRG IV PRN (08:30)
[2025-03-26] MEDS ORDERED: VANCOMYCIN PER PHARMACY 0 MG IV SCH (08:45)
[2025-03-26] MEDS ORDERED: DOCUSATE SOD 100 MG CAP PO PRN (08:45)
[2025-03-26] MEDS ORDERED: NITROGLYCERIN 0.4 MG SL TAB SL PRN (08:45)
[2025-03-26] MEDS ORDERED: ONDANSETRON HCL 4 MG/2 ML VIAL IV PRN (08:45)
[2025-03-26] MEDS ORDERED: MORPHINE SULFATE INJ 2 MG/ml SYRG IV PRN (08:45)
[2025-03-26] MEDS ORDERED: ACETAMINOPHEN 325 MG TAB PO PRN (08:45)
[2025-03-26] MEDS: METOPROLOL TARTRATE 50 MG TAB PO SCH (09:22)
[2025-03-26] MEDS: FUROSEMIDE 20 MG TAB PO SCH (10:00)
--- NOTE | 2025-03-26 10:13 | DVHPN2 ---
Reviewed: Care Plan, H&P, Labs, Medications, Previous Orders, Radiology Changes from previous H/P or p: No Changes Eyes: No Pain, No Vision change, No Conjunctivae inflammation, No Eyelid inflammation, No Other, No Redness ENT: No Ear pain, No Ear discharge, No Nose pain, No Nose discharge, No Nose congestion, No Mouth pain, No Mouth swelling, No Throat pain, No Throat swelling, No Other Cardiovascular: No Chest Pain, No Palpitations, No Orthopnea, No Paroxysmal Noc. Dyspnea; Edema; No Lt Headedness, No Other Respiratory: No Cough, No Dry, No Shortness of breath, No SOB with excertion, No Wheezing, No Hemoptysis, No Pleuritic Pain, No Sputum, No Other Gastrointestinal: No Nausea, No Vomiting, No Abdominal Pain, No Diarrhea, No Constipation, No Melena, No Hematochezia, No Other Genitourinary: No Dysuria, No Frequency, No Incontinence, No Hematuria, No Retention, No Other Musculoskeletal: No other, No neck pain, No shoulder pain, No arm pain, No back pain, No hand pain, No leg pain, No foot pain Skin: No Rash, No Lesions, No Jaundice, No Bruising, No Other Objective Vitals Vital Signs Date Time Temp Pulse Resp B/P (MAP) Pulse Ox O2 Delivery O2 Flow Rate FiO2 03/26/25 09:22 100 127/85 03/26/25 09:00 98.5 18 96 98.5 03/25/25 20:00 Room Air* 0 21 Intake/Output Intake and Output 03/26/25 06:59 Intake Total 1350 ml Balance 1350 ml Intake Oral 600 ml IV Total 750 ml # Voids 4 Medications Current Medications Medications Dose Ordered Sig/Angeline Route Start Time Stop Time Status Last Admin Dose Admin Vancomycin HCl 250 ml @ 250 mls/hr Q1H IV 03/25/25 10:45 03/25/25 12:44 Cancel Atorvastatin Calcium 40 mg HS PO 03/25/25 22:00 03/25/25 23:16 40 MG Digoxin 0.125 mg EOD PO 03/26/25 10:00 03/26/25 08:26 0.125 MG Amiodarone HCl 200 mg Q12HR PO 03/25/25 22:00 03/26/25 08:26 200 MG Furosemide 20 mg DAILY PO 03/26/25 10:00 Vancomycin HCl 250 ml @ 250 mls/hr Q1H IV 03/25/25 13:15 03/25/25 15:14 Cancel Vancomycin HCl 250 ml @ 250 mls/hr Q8H IV 03/26/25 00:00 03/26/25 09:22 250 MLS/HR Metoprolol Tartrate 5 mg Q5M PRN IV 03/26/25 08:30 Metoprolol Tartrate 50 mg BID PO 03/26/25 10:00 03/26/25 09:22 50 MG Diagnostic Test (Pha) 1 strip IQ4HR 03/26/25 12:00 Insulin Human Regular IQ4HR SC 03/26/25 12:00 Dextrose 50 ml UD PRN IV 03/26/25 08:30 Sodium Chloride 10 ml Q8HR IV 03/26/25 14:00 Acetaminophen/ Hydrocodone Bitart 1 tab Q4HP PRN PO 03/26/25 08:45 Ondansetron HCl 4 mg Q4HP PRN IV 03/26/25 08:45 Docusate Sodium 100 mg BIDPRN PRN PO 03/26/25 08:45 Acetaminophen 650 mg Q6HP PRN PO 03/26/25 08:45 Nitroglycerin 0.4 mg Q5MINP PRN SL 03/26/25 08:45 Morphine Sulfate 2 mg Q30M PRN IV 03/26/25 08:45 Aspirin 81 mg DAILY PO 03/26/25 10:00 Vancomycin HCl 0 ml @ 0 mls/hr UD IV 03/26/25 08:45 Laboratory Results Laboratory Tests 03/26/25 05:53 Chemistry Test 03/26/25 05:53 Albumin 3.2 g/dL (3.2-4.8) Calcium Level 8.5 mg/dL (8.7-10.4) L Magnesium Level 2.3 mg/dL (1.6-2.6) Total Protein 5.9 g/dL (5.7-8.2) LFT Test 03/26/25 05:53 Alanine Aminotransferase (ALT) 15 U/L (7-40) Alkaline Phosphatase 86 U/L (46-116) Aspartate Amino Transferase (AST) 26 U/L (13-40) Total Bilirubin 0.8 mg/dL (0.2-1.0) Urinalysis Test 03/25/25 03:20 Urine Color Yellow (Yellow) Urine Clarity Clear (Clear) Urine pH 6.5 (5.0-9.0) Urine Specific Lipscomb 1.042 (1.001-1.035) Urine Protein Trace (Negative) H Urine Ketones 1+ (Negative) H Urine Blood Negative /uL (Negative) Urine Nitrite Negative (Negative) Urine Bilirubin Negative (Negative) Urine Urobilinogen Normal mg/dL (Negative) Urine Leukocyte Esterase Negative /uL (Negative) Urine RBC 2 /hpf (0 - 3) Urine Microscopic WBC 1 /HPF (0-3) Urine Squamous Epithelial Cells None seen /hpf (<5) Urine Bacteria None seen /hpf (None Seen) Urine Glucose 4+ mg/dL (Normal) H Microbiology Microbiology Date/Time Source Procedure Growth Status 03/24/25 01:06 Blood Blood Culture - Preliminary NO GROWTH AFTER 48 HOURS OF INCUBATION. Resulted Labs and/or images reviewed: Labs reviewed by me, Image(s) reviewed by me Assessment/Plan Assessment/Plan Sepsis with WBC 23 K secondary to cellulitis right lower extremity: Zosyn Acute on chronic decompensated heart failure (HFrEF) --(previous EF 40%) AFib with RVR, ? chronic vs paroxymal/transient, on BB cardiology consult appreciated, amiodarone drip metoprolol Lovenox Mildy elevated troponin, likely representing type 2 demand ischemia Non-sustained ventricular tachycardia Left inguinal lymphadenopathy BRODY possible CKD DM 2 well-controlled A1c 6.2 Right lower extremity diabetic ulcer Left posterior tibial artery occlusion patient getting peripheral angiogram Patient used to live with his brother who recently Patient's daughter is an RN who lives in [place] DVT ruled out hx of Falls Hypertension Type 2 diabetes Morbid obesity Time spent 70 minutes Advanced care planning time 20 minutes Plan discussed with: Patient My Orders Orders - RIDGE LEGER MD Procedure Category Date Status Time Wound Culture W/ Gs PABLO 03/25/25 In Process 16:08 Wound Culture W/ Gs PABLO 03/25/25 In Process 16:10 Date of Service: Mar 26, 2025 Billing Provider: RIDGE LEGER MD Common Visit Codes: [id number] INP/OBS CARE(HIGH) RIDGE LEGER MD Mar 26, 2025 10:13
--- NOTE | 2025-03-26 10:53 | ECG ---
[facility] Test Date: 2025-03-23 Test Time: 22:02:24 Pat Name: SAVAGE DE ANDA Department: ER Room: 0223T B Gender: M Technical Illustrator: FLORIAN : 1960 Requested By: CHICO SHELBY Order Number: [id number] Reading MD: Javier Victoria Measurements Intervals [place] Rate: 144 P: 0 OK: 0 QRS: -71 QRSD: 99 T: 85 QT: 297 QTc: 460 Interpretive Statements Atrial fibrillation Ventricular premature complex Left anterior fascicular block Abnormal R-wave progression, late transition Electronically Signed On 03-26-2025 22:58:06 PDT by Javier Victoria Please click the below link to view image of tracing.
[2025-03-26] MEDS: IODIXANOL 320MG/ML 100ML BTL IV ONE ×2 (11:02→11:47)
[2025-03-26] MEDS: LIDOCAINE 2%HCL (LOCAL ANESTH.) INJ 20ML MDV ONE ×2 (11:04→11:12)
[2025-03-26] MEDS: fentaNYL CITRATE 100 MCG/2 ML VL ONE (11:04)
[2025-03-26] MEDS: ANGIOMAX 250 MG VIAL IV ONE (11:04)
[2025-03-26] MEDS: SODIUM CHL 0.9% 0 ML ONE (11:04)
[2025-03-26] MEDS: MIDAZOLAM HCL 2MG/2ML 2ml VIAL (1mg/ml) ONE (11:04)
--- NOTE | 2025-03-26 11:46 | DVHPN2 ---
Progress Note Date Seen: Mar 26, 2025 Medical Necessity Reason Pt with a Central, PICC or Fol: No Subjective Patient reports: Feels better Objective vital signs Vital Sign Date Time Temp Pulse Resp B/P (MAP) Pulse Ox O2 Delivery O2 Flow Rate FiO2 03/26/25 09:22 100 127/85 03/26/25 09:00 98.5 18 96 98.5 03/25/25 20:00 Room Air* 0 21 Total Intake and Output 03/25/25 03/25/25 03/26/25 15:00 23:00 07:00 Intake Total 850 ml 500 ml Balance 850 ml 500 ml medications Current Medications Medications Dose Ordered Sig/Angeline Route Start Time Stop Time Status Last Admin Dose Admin Vancomycin HCl 250 ml @ 250 mls/hr Q1H IV 03/25/25 10:45 03/25/25 12:44 Cancel Atorvastatin Calcium 40 mg HS PO 03/25/25 22:00 03/25/25 23:16 40 MG Digoxin 0.125 mg EOD PO 03/26/25 10:00 03/26/25 08:26 0.125 MG Amiodarone HCl 200 mg Q12HR PO 03/25/25 22:00 03/26/25 08:26 200 MG Furosemide 20 mg DAILY PO 03/26/25 10:00 Vancomycin HCl 250 ml @ 250 mls/hr Q1H IV 03/25/25 13:15 03/25/25 15:14 Cancel Vancomycin HCl 250 ml @ 250 mls/hr Q8H IV 03/26/25 00:00 03/26/25 09:22 250 MLS/HR Metoprolol Tartrate 5 mg Q5M PRN IV 03/26/25 08:30 Metoprolol Tartrate 50 mg BID PO 03/26/25 10:00 03/26/25 09:22 50 MG Diagnostic Test (Pha) 1 strip IQ4HR 03/26/25 12:00 Insulin Human Regular IQ4HR SC 03/26/25 12:00 Dextrose 50 ml UD PRN IV 03/26/25 08:30 Sodium Chloride 10 ml Q8HR IV 03/26/25 14:00 Acetaminophen/ Hydrocodone Bitart 1 tab Q4HP PRN PO 03/26/25 08:45 Ondansetron HCl 4 mg Q4HP PRN IV 03/26/25 08:45 Docusate Sodium 100 mg BIDPRN PRN PO 03/26/25 08:45 Acetaminophen 650 mg Q6HP PRN PO 03/26/25 08:45 Nitroglycerin 0.4 mg Q5MINP PRN SL 03/26/25 08:45 Morphine Sulfate 2 mg Q30M PRN IV 03/26/25 08:45 Aspirin 81 mg DAILY PO 03/26/25 10:00 Vancomycin HCl 0 ml @ 0 mls/hr UD IV 03/26/25 08:45 Examination: GENERAL:Abnormal, HEENT:Abnormal, LUNGS:Abnormal, CVS:Abnormal, ABDOMEN:Abnormal laboratory and microbiology Laboratory Tests 03/26/25 05:53 Test 03/26/25 05:53 Range/Units Serum Glucose 108 H 74-106 mg/dL Microbiology Date/Time Source Procedure Growth Status 03/25/25 13:25 Leg Gram Stain - Final Resulted 03/25/25 13:25 Leg Wound Culture - Preliminary Resulted 03/24/25 01:06 Blood Blood Culture - Preliminary NO GROWTH AFTER 48 HOURS OF INCUBATION. Resulted Problem List/Assessment/Plan Problem List/Assessment/Plan afib pad cellulitis wound obesity htn ckd s/p BL leg angio no severe pad resume lovenox on 03/27 cont HF meds and therapy/ afib tx per primary cards will sign off Plan discussed with: Patient My Orders My Orders Orders - ANSELMO BEY MD Procedure Category Date Status Time Communication Order ORDERS 03/25/25 Transmitted 13:44 Npo (Nothing By DIET 03/26/25 Transmitted Mouth) Diet Breakfast Cl Angio Extremity CL 03/26/25 Taken Bilat S&I 07:18 Cl Angio Extremity CL 03/26/25 Logged Bilat S&I 10:55 Enoxaparin Sodium PHA 03/27/25 Verified (Lovenox) 08:00 Dietary Evaluation Review Comments: CCHO-60 cardiac diet with Isai BID Expected Outcomes/Goals: controlled DM, healed wound, gradual wt loss Date of Service: Mar 26, 2025 Billing Provider: ANSELMO BEY MD Common Visit Codes: NOT BILLABLE ANSELMO BEY MD Mar 26, 2025 11:46
[2025-03-26] MEDS: InsuLIN REG 1unit/0.01ml Soln (100units/ml) SC SCH (12:00)
[2025-03-26] MEDS: ACCU-CHEK COMFORT CURVE STRIP VI SCH (12:00)
--- NOTE | 2025-03-26 12:07 | DVHOP ---
DATE OF SURGERY: 03/26/2025 PREOPERATIVE DIAGNOSIS: Rule out CLI, cellulitis and lower extremity wounds, PAD. POSTOPERATIVE DIAGNOSIS: Mild PAD. PROCEDURES PERFORMED: * Ultrasound-guided vascular access, saved to the PACS system. * Conscious sedation administration supervision less than 15 minutes. * Conscious sedation and supervision 15 to 30 minutes. * Bilateral lower extremity angiogram. * Abdominal angiogram and runoff. * First, second, third-order catheter placement and catheterization. * Hemostasis closure device. PROCEDURE IN DETAIL: The patient signed informed consent and understanding the risks, benefits, and alternatives of procedure. He wished to proceed. He was brought to the cardiac cath lab radiology technologist in n.p.o. state. He was prepped in sterile fashion. I gave 8 mL of 2% lidocaine to his right groin. Then, I performed a puncture. I cannulated his right common femoral artery using ultrasound-guided access and placed a 6-Afghan sheath. Ipsilateral angiogram was performed showing appropriate arteriotomy site. Then, I did an angiogram on the right side. This shows the right common femoral artery is patent. Right proximal, mid, and distal SFA are patent. Right profunda artery is patent. Right popliteal artery is patent. Right tibioperoneal trunk is patent. Right anterior tibial artery is patent. Right posterior tibial artery is patent. Right peroneal artery is patent. Next, I took a 5-Afghan RIM catheter into the descending aorta and angiogram was performed. This shows the distal aorta is patent. Right common iliac artery is patent. Right external iliac artery is patent. Left common iliac artery is patent. Left external iliac artery is patent. Then, I took a RIM catheter over a Glidewire and I crossed contralaterally into the contralateral ostial SFA. Angiogram was performed. This shows the left common femoral artery is patent. Left profunda artery is patent. Left proximal, mid, and distal SFA are patent. Left popliteal artery is patent. Left tibioperoneal trunk is patent. Left anterior tibial artery is patent with distal flow into the ankle, sluggish flow. Left peroneal artery is patent. Left posterior tibial artery is patent. At this point, all guides and wires were removed and a 6-Afghan Angio-Seal was delivered for closure. There were no immediate complications. CONCLUSION: Bilateral three-vessel distal runoff. PLAN: * Continue anticoagulation for AFib. * Continue wound care per primary team. Anthony Gale MD CM/MELO TID: [id number] RECEIPT: [id number]
[2025-03-26] MEDS: SODIUM CHLOR 0.9% PF (SALINE LOCK) 10ML VIAL/SYR IV SCH (14:15)
[2025-03-26] MEDS: VANCOMYCIN 1GM/250ML KIT 250 ML IV SCH (15:00)
[2025-03-26] MEDS: HYDROcodone-ACET 5/325MG TAB PO PRN (20:48)
--- NOTE | 2025-03-26 22:09 | DVHPN2 ---
Progress Note - Dictate Date Seen: Mar 26, 2025 Medical Necessity Reason Pt with a Central, PICC or Fol: No Subjective Patient was seen and evaluated in follow up. Patient underwent bilateral lower extremity angiogram, abdominal angiogram and runoff, first, second, third-order catheter placement and catheterization. Patient to be continued on anticoagulation for AFib. Telemetry reviewed. vital signs Vital Sign Date Time Temp Pulse Resp B/P (MAP) Pulse Ox O2 Delivery O2 Flow Rate FiO2 03/26/25 21:00 98.2 100 18 122/78 (93) 95 98.2 03/26/25 08:00 Room Air* 0 21 Total Intake and Output 03/25/25 03/25/25 03/26/25 15:00 23:00 07:00 Intake Total 850 ml 500 ml Balance 850 ml 500 ml medications Current Medications Medications Dose Ordered Sig/Angeline Route Start Time Stop Time Status Last Admin Dose Admin Vancomycin HCl 250 ml @ 250 mls/hr Q1H IV 03/25/25 10:45 03/25/25 12:44 Cancel Atorvastatin Calcium 40 mg HS PO 03/25/25 22:00 03/26/25 20:49 40 MG Digoxin 0.125 mg EOD PO 03/26/25 10:00 03/26/25 08:26 0.125 MG Amiodarone HCl 200 mg Q12HR PO 03/25/25 22:00 03/26/25 20:48 200 MG Furosemide 20 mg DAILY PO 03/26/25 10:00 Vancomycin HCl 250 ml @ 250 mls/hr Q1H IV 03/25/25 13:15 03/25/25 15:14 Cancel Metoprolol Tartrate 5 mg Q5M PRN IV 03/26/25 08:30 Metoprolol Tartrate 50 mg BID PO 03/26/25 10:00 03/26/25 20:49 50 MG Diagnostic Test (Pha) 1 strip IQ4HR 03/26/25 12:00 03/26/25 20:49 1 STRIP Insulin Human Regular IQ4HR SC 03/26/25 12:00 03/26/25 20:52 2 UNITS Dextrose 50 ml UD PRN IV 03/26/25 08:30 Sodium Chloride 10 ml Q8HR IV 03/26/25 14:00 03/26/25 20:52 10 ML Acetaminophen/ Hydrocodone Bitart 1 tab Q4HP PRN PO 03/26/25 08:45 03/26/25 20:48 1 TAB Ondansetron HCl 4 mg Q4HP PRN IV 03/26/25 08:45 Docusate Sodium 100 mg BIDPRN PRN PO 03/26/25 08:45 Acetaminophen 650 mg Q6HP PRN PO 03/26/25 08:45 Nitroglycerin 0.4 mg Q5MINP PRN SL 03/26/25 08:45 Morphine Sulfate 2 mg Q30M PRN IV 03/26/25 08:45 Aspirin 81 mg DAILY PO 03/26/25 10:00 Vancomycin HCl 0 ml @ 0 mls/hr UD IV 03/26/25 08:45 Enoxaparin Sodium 120 mg Q12HR SC 03/27/25 08:00 Vancomycin HCl 250 ml @ 250 mls/hr Q8H IV 03/26/25 15:00 objective GENERAL: Alert and oriented x 3. No acute distress. EYES: PERRL, EOMI. Anicteric. HENT: Moist mucous membranes. LUNGS: Clear to auscultation bilaterally. CARDIOVASCULAR: Regular rate and rhythm. ABDOMEN: Soft, non-tender and non-distended. EXTREMITIES: LLE erythema from foot extending to inner thigh. BLE wounds (see wound care documentation) NEUROLOGIC: No focal neurological deficits. SKIN: Warm, dry. laboratory and microbiology Laboratory Tests 03/26/25 05:53 Test 03/26/25 05:53 Range/Units Serum Glucose 108 H 74-106 mg/dL Problem List AFib with RVR, likely persistent, on BB (CHADS-VASc score 3, HAS-BLED 1). Acute on chronic decompensated heart failure (HFrecEF), NYHA Class II. Mildly elevated troponin, likely representing type 2 demand ischemia. LLE peripheral arterial disease with associated diabetic ulcer. Non-sustained ventricular tachycardia x 5 beats. Right lower extremity diabetic ulcer. Left inguinal lymphadenopathy. Likely BRODY on CKD. DVT, ruled out. History of Falls. Hypertension. Type 2 diabetes. Medical non-compliance. Morbid obesity. Assessment/Plan Continued all current supportive medical care. [place] for pain management. Amiodarone. Aspirin, Lipitor, Metoprolol. Digoxin. DVT prophylactics. Diuretics with Lasix. Nitro SL. Additional plan as per the hospital course. Dietary Evaluation Review Comments: [facility]-60 cardiac diet with Isai BID Expected Outcomes/Goals: controlled DM, healed wound, gradual wt loss Plan discussed with: Patient CLINT LOUISE MD Mar 26, 2025 22:09
[2025-03-27] VITALS (8 sets, daily range): BP systolic 99–137; BP diastolic 68–86; PULSE 68–131; RESP 18–19; TEMP 97.9–98.8; O2SAT 94–97
[2025-03-27] MEDS: VANCOMYCIN 1GM/250ML KIT 250 ML IV SCH ×2 (05:52→14:31)
[2025-03-27 07:26] LABS: Alanine Aminotransferase 14 U/L (7-40); Alkaline Phosphatase 87 U/L (46-116); Anion Gap 10 (5-15); BUN/Creatinine Ratio 27.7 (10.0-20.0); Bilirubin, Total 0.7 mg/dL (0.2-1.0); Blood Urea Nitrogen 18 mg/dL (9-23); Carbon Dioxide 24 mmol/L (20-31); Chloride 100 mmol/L (98-107); Potassium 4.4 mmol/L (3.5-5.1); Total Protein 5.9 g/dL (5.7-8.2)
[2025-03-27] MEDS: ENOXAPARIN SOD 100 MG/1 ML SYRINGE SC SCH (07:29)
[2025-03-27 07:30] LABS: Albumin 3.1 g/dL (3.2-4.8); Calcium 8.4 mg/dL (8.7-10.4); Glucose 141 mg/dL (74-106); Sodium 134 mmol/L (136-145)
--- NOTE | 2025-03-27 10:51 | DVHPN2 ---
Reviewed: Care Plan, H&P, Labs, Medications, Previous Orders, Radiology Changes from previous H/P or p: No Changes Eyes: No Pain, No Vision change, No Conjunctivae inflammation, No Eyelid inflammation, No Other, No Redness ENT: No Ear pain, No Ear discharge, No Nose pain, No Nose discharge, No Nose congestion, No Mouth pain, No Mouth swelling, No Throat pain, No Throat swelling, No Other Cardiovascular: No Chest Pain, No Palpitations, No Orthopnea, No Paroxysmal Noc. Dyspnea; Edema; No Lt Headedness, No Other Respiratory: No Cough, No Dry, No Shortness of breath, No SOB with excertion, No Wheezing, No Hemoptysis, No Pleuritic Pain, No Sputum, No Other Gastrointestinal: No Nausea, No Vomiting, No Abdominal Pain, No Diarrhea, No Constipation, No Melena, No Hematochezia, No Other Genitourinary: No Dysuria, No Frequency, No Incontinence, No Hematuria, No Retention, No Other Musculoskeletal: No other, No neck pain, No shoulder pain, No arm pain, No back pain, No hand pain, No leg pain, No foot pain Skin: No Rash, No Lesions, No Jaundice, No Bruising, No Other Objective Vitals Vital Signs Date Time Temp Pulse Resp B/P (MAP) Pulse Ox O2 Delivery O2 Flow Rate FiO2 03/27/25 09:36 111 137/72 03/27/25 08:00 Room Air* 0 21 03/27/25 05:00 98.4 18 97 98.4 Intake/Output Intake and Output 03/27/25 07:00 Intake Total 1650 ml Output Total 1100 ml Balance 550 ml Intake Oral 1400 ml IV Total 250 ml Output Urine Total 1100 ml Medications Current Medications Medications Dose Ordered Sig/Angeline Route Start Time Stop Time Status Last Admin Dose Admin Vancomycin HCl 250 ml @ 250 mls/hr Q1H IV 03/25/25 10:45 03/25/25 12:44 Cancel Atorvastatin Calcium 40 mg HS PO 03/25/25 22:00 03/26/25 20:49 40 MG Amiodarone HCl 200 mg Q12HR PO 03/25/25 22:00 03/27/25 09:35 200 MG Furosemide 20 mg DAILY PO 03/26/25 10:00 03/27/25 09:36 20 MG Vancomycin HCl 250 ml @ 250 mls/hr Q1H IV 03/25/25 13:15 03/25/25 15:14 Cancel Metoprolol Tartrate 5 mg Q5M PRN IV 03/26/25 08:30 Metoprolol Tartrate 50 mg BID PO 03/26/25 10:00 03/27/25 09:36 50 MG Diagnostic Test (Pha) 1 strip IQ4HR 03/26/25 12:00 03/27/25 07:25 1 STRIP Insulin Human Regular IQ4HR SC 03/26/25 12:00 03/27/25 07:26 2 UNITS Dextrose 50 ml UD PRN IV 03/26/25 08:30 Sodium Chloride 10 ml Q8HR IV 03/26/25 14:00 03/27/25 05:59 10 ML Acetaminophen/ Hydrocodone Bitart 1 tab Q4HP PRN PO 03/26/25 08:45 03/27/25 09:53 1 TAB Ondansetron HCl 4 mg Q4HP PRN IV 03/26/25 08:45 Docusate Sodium 100 mg BIDPRN PRN PO 03/26/25 08:45 Acetaminophen 650 mg Q6HP PRN PO 03/26/25 08:45 Nitroglycerin 0.4 mg Q5MINP PRN SL 03/26/25 08:45 Morphine Sulfate 2 mg Q30M PRN IV 03/26/25 08:45 Aspirin 81 mg DAILY PO 03/26/25 10:00 03/27/25 09:35 81 MG Vancomycin HCl 0 ml @ 0 mls/hr UD IV 03/26/25 08:45 Enoxaparin Sodium 120 mg Q12HR SC 03/27/25 08:00 03/27/25 09:36 120 MG Vancomycin HCl 250 ml @ 250 mls/hr Q8H IV 03/27/25 05:45 03/27/25 05:52 250 MLS/HR Digoxin 0.125 mg DAILY PO 03/28/25 10:00 Laboratory Results Laboratory Tests 03/26/25 05:53 03/27/25 06:25 Chemistry Test 03/27/25 06:25 Albumin 3.1 g/dL (3.2-4.8) L Calcium Level 8.4 mg/dL (8.7-10.4) L Total Protein 5.9 g/dL (5.7-8.2) LFT Test 03/27/25 06:25 Alanine Aminotransferase (ALT) 14 U/L (7-40) Alkaline Phosphatase 87 U/L (46-116) Aspartate Amino Transferase (AST) 24 U/L (13-40) Total Bilirubin 0.7 mg/dL (0.2-1.0) Urinalysis Test 03/25/25 03:20 Urine Color Yellow (Yellow) Urine Clarity Clear (Clear) Urine pH 6.5 (5.0-9.0) Urine Specific [place] 1.042 (1.001-1.035) Urine Protein Trace (Negative) H Urine Ketones 1+ (Negative) H Urine Blood Negative /uL (Negative) Urine Nitrite Negative (Negative) Urine Bilirubin Negative (Negative) Urine Urobilinogen Normal mg/dL (Negative) Urine Leukocyte Esterase Negative /uL (Negative) Urine RBC 2 /hpf (0 - 3) Urine Microscopic WBC 1 /HPF (0-3) Urine Squamous Epithelial Cells None seen /hpf (<5) Urine Bacteria None seen /hpf (None Seen) Urine Glucose 4+ mg/dL (Normal) H Microbiology Microbiology Date/Time Source Procedure Growth Status 03/25/25 13:25 Leg Gram Stain - Final Resulted 03/25/25 13:25 Leg Wound Culture - Preliminary Resulted 03/24/25 01:06 Blood Blood Culture - Preliminary NO GROWTH AFTER 72 HOURS OF INCUBATION. Resulted Labs and/or images reviewed: Labs reviewed by me, Image(s) reviewed by me Assessment/Plan Assessment/Plan Sepsis with WBC 23 K secondary to cellulitis right lower extremity: Zosyn, blood cultures negative, wound cultures pending Acute on chronic decompensated heart failure (HFrEF) --(previous EF 40%) AFib with RVR, ? chronic vs paroxymal/transient, on BB cardiology consult appreciated, amiodarone tablets digoxin metoprolol Lovenox Mildy elevated troponin, likely representing type 2 demand ischemia Non-sustained ventricular tachycardia Left inguinal lymphadenopathy BRODY possible CKD DM 2 well-controlled A1c 6.2 Right lower extremity diabetic ulcer Mild peripheral arterial disease bilateral lower extremities status post peripheral angiogram by Dr. Gale Patient used to live with his brother who recently Patient's daughter is an RN who lives in [place] DVT ruled out hx of Falls Hypertension Type 2 diabetes Morbid obesity Time spent 50 minutes Advanced care planning time 20 minutes EARNESTINE Us at bed side Spoke to patient's daughter Cristina (ICU nurse at [facility]) [phone], she is requesting SNF placement if IV antibiotics are needed Plan discussed with: Patient My Orders Orders - RIDGE LEGER MD Procedure Category Date Status Time Consistent DIET 03/26/25 Transmitted Carb([facility] [place])Diabetes Dinner Date of Service: Mar 27, 2025 Billing Provider: RIDGE LEGER MD Common Visit Codes: [id number] INP/OBS CARE(HIGH) RIDGE LEGER MD Mar 27, 2025 10:51
[2025-03-27] MEDS: DIGOXIN 0.125 MG TAB PO ONE (10:52)
--- NOTE | 2025-03-27 23:20 | DVHPN2 ---
Progress Note - Dictate Date Seen: Mar 27, 2025 Medical Necessity Reason Pt with a Central, PICC or Fol: No Subjective Patient was seen and evaluated in follow up. Patient's daughter is present at bedside. Patient complains of generalized discomfort. GLUC 207, CA 8.4. Telemetry reviewed. vital signs Vital Sign Date Time Temp Pulse Resp B/P (MAP) Pulse Ox O2 Delivery O2 Flow Rate FiO2 03/27/25 10:52 126 03/27/25 10:36 126/74 03/27/25 09:00 98.7 19 96 98.7 03/27/25 08:00 Room Air* 0 21 Total Intake and Output 03/26/25 03/26/25 03/27/25 14:59 22:59 06:59 Intake Total 800 ml 850 ml Output Total 1100 ml Balance 800 ml -250 ml medications Current Medications Medications Dose Ordered Sig/Angeline Route Start Time Stop Time Status Last Admin Dose Admin Vancomycin HCl 250 ml @ 250 mls/hr Q1H IV 03/25/25 10:45 03/25/25 12:44 Cancel Atorvastatin Calcium 40 mg HS PO 03/25/25 22:00 03/26/25 20:49 40 MG Amiodarone HCl 200 mg Q12HR PO 03/25/25 22:00 03/27/25 09:35 200 MG Furosemide 20 mg DAILY PO 03/26/25 10:00 03/27/25 09:36 20 MG Vancomycin HCl 250 ml @ 250 mls/hr Q1H IV 03/25/25 13:15 03/25/25 15:14 Cancel Metoprolol Tartrate 5 mg Q5M PRN IV 03/26/25 08:30 Metoprolol Tartrate 50 mg BID PO 03/26/25 10:00 03/27/25 09:36 50 MG Diagnostic Test (Pha) 1 strip IQ4HR 03/26/25 12:00 03/27/25 11:30 1 STRIP Insulin Human Regular IQ4HR SC 03/26/25 12:00 03/27/25 11:30 6 UNITS Dextrose 50 ml UD PRN IV 03/26/25 08:30 Sodium Chloride 10 ml Q8HR IV 03/26/25 14:00 03/27/25 05:59 10 ML Acetaminophen/ Hydrocodone Bitart 1 tab Q4HP PRN PO 03/26/25 08:45 03/27/25 09:53 1 TAB Ondansetron HCl 4 mg Q4HP PRN IV 03/26/25 08:45 Docusate Sodium 100 mg BIDPRN PRN PO 03/26/25 08:45 Acetaminophen 650 mg Q6HP PRN PO 03/26/25 08:45 Nitroglycerin 0.4 mg Q5MINP PRN SL 03/26/25 08:45 Morphine Sulfate 2 mg Q30M PRN IV 03/26/25 08:45 Aspirin 81 mg DAILY PO 03/26/25 10:00 03/27/25 09:35 81 MG Vancomycin HCl 0 ml @ 0 mls/hr UD IV 03/26/25 08:45 Enoxaparin Sodium 120 mg Q12HR SC 03/27/25 08:00 03/27/25 09:36 120 MG Digoxin 0.125 mg DAILY PO 03/28/25 10:00 Vancomycin HCl 250 ml @ 250 mls/hr Q8H IV 03/27/25 14:00 objective GENERAL: Alert and oriented x 3. No acute distress. EYES: PERRL, EOMI. Anicteric. HENT: Moist mucous membranes. LUNGS: Clear to auscultation bilaterally. CARDIOVASCULAR: Regular rate and rhythm. ABDOMEN: Soft, non-tender and non-distended. EXTREMITIES: LLE erythema from foot extending to inner thigh. BLE wounds (see wound care documentation) NEUROLOGIC: No focal neurological deficits. SKIN: Warm, dry. laboratory and microbiology Laboratory Tests 03/27/25 06:25 03/26/25 05:53 Test 03/27/25 06:25 Range/Units Serum Glucose 141 H 74-106 mg/dL Problem List AFib with RVR, likely persistent, on BB (CHADS-VASc score 3, HAS-BLED 1). Acute on chronic decompensated heart failure (HFrecEF), NYHA Class II. Mildly elevated troponin, likely representing type 2 demand ischemia. LLE peripheral arterial disease with associated diabetic ulcer. Non-sustained ventricular tachycardia x 5 beats. Right lower extremity diabetic ulcer. Left inguinal lymphadenopathy. Likely BRODY on CKD. DVT, ruled out. History of Falls. Hypertension. Type 2 diabetes. Medical non-compliance. Morbid obesity. Assessment/Plan Continued all current supportive medical care. [place] for pain management. Amiodarone. Aspirin,Metoprolol. DVT prophylactics. Diuretics with Lasix. Nitro SL. IV antibiotics as ordered. Additional plan as per the hospital course. Dietary Evaluation Review Comments[facility] diet with Isai BID Expected Outcomes/Goals: controlled DM, healed wound, gradual wt loss Plan discussed with: Patient CLINT LOUISE MD Mar 27, 2025 14:21
[2025-03-28] VITALS (8 sets, daily range): BP systolic 109–116; BP diastolic 56–76; PULSE 50–127; RESP 18–20; TEMP 97.9–98.9; O2SAT 96–98
[2025-03-28] MEDS: DIGOXIN 0.125 MG TAB PO SCH (09:33)
--- NOTE | 2025-03-28 10:15 | DVHPN2 ---
Reviewed: Care Plan, H&P, Labs, Medications, Previous Orders, Radiology Changes from previous H/P or p: No Changes Eyes: No Pain, No Vision change, No Conjunctivae inflammation, No Eyelid inflammation, No Other, No Redness ENT: No Ear pain, No Ear discharge, No Nose pain, No Nose discharge, No Nose congestion, No Mouth pain, No Mouth swelling, No Throat pain, No Throat swelling, No Other Cardiovascular: No Chest Pain, No Palpitations, No Orthopnea, No Paroxysmal Noc. Dyspnea; Edema; No Lt Headedness, No Other Respiratory: No Cough, No Dry, No Shortness of breath, No SOB with excertion, No Wheezing, No Hemoptysis, No Pleuritic Pain, No Sputum, No Other Gastrointestinal: No Nausea, No Vomiting, No Abdominal Pain, No Diarrhea, No Constipation, No Melena, No Hematochezia, No Other Genitourinary: No Dysuria, No Frequency, No Incontinence, No Hematuria, No Retention, No Other Musculoskeletal: No other, No neck pain, No shoulder pain, No arm pain, No back pain, No hand pain, No leg pain, No foot pain Skin: No Rash, No Lesions, No Jaundice, No Bruising, No Other Objective Vitals Vital Signs Date Time Temp Pulse Resp B/P (MAP) Pulse Ox O2 Delivery O2 Flow Rate FiO2 03/28/25 09:36 67 116/66 03/28/25 08:00 Room Air* 0 21 03/28/25 05:00 98.5 18 96 98.5 Intake/Output Intake and Output 03/28/25 07:00 Intake Total 1130 ml Output Total 2350 ml Balance -1220 ml Intake Oral 880 ml IV Total 250 ml Output Urine Total 2350 ml Medications Current Medications Medications Dose Ordered Sig/Angeline Route Start Time Stop Time Status Last Admin Dose Admin Vancomycin HCl 250 ml @ 250 mls/hr Q1H IV 03/25/25 10:45 03/25/25 12:44 Cancel Atorvastatin Calcium 40 mg HS PO 03/25/25 22:00 03/27/25 21:07 40 MG Amiodarone HCl 200 mg Q12HR PO 03/25/25 22:00 03/28/25 09:33 200 MG Furosemide 20 mg DAILY PO 03/26/25 10:00 03/28/25 09:35 20 MG Vancomycin HCl 250 ml @ 250 mls/hr Q1H IV 03/25/25 13:15 03/25/25 15:14 Cancel Metoprolol Tartrate 5 mg Q5M PRN IV 03/26/25 08:30 Metoprolol Tartrate 50 mg BID PO 03/26/25 10:00 03/28/25 09:36 50 MG Diagnostic Test (Pha) 1 strip IQ4HR 03/26/25 12:00 03/28/25 08:00 1 STRIP Insulin Human Regular IQ4HR SC 03/26/25 12:00 03/28/25 08:00 2 UNITS Dextrose 50 ml UD PRN IV 03/26/25 08:30 Sodium Chloride 10 ml Q8HR IV 03/26/25 14:00 03/28/25 04:58 10 ML Acetaminophen/ Hydrocodone Bitart 1 tab Q4HP PRN PO 03/26/25 08:45 03/28/25 05:53 1 TAB Ondansetron HCl 4 mg Q4HP PRN IV 03/26/25 08:45 Docusate Sodium 100 mg BIDPRN PRN PO 03/26/25 08:45 Acetaminophen 650 mg Q6HP PRN PO 03/26/25 08:45 Nitroglycerin 0.4 mg Q5MINP PRN SL 03/26/25 08:45 Morphine Sulfate 2 mg Q30M PRN IV 03/26/25 08:45 Aspirin 81 mg DAILY PO 03/26/25 10:00 03/28/25 09:33 81 MG Enoxaparin Sodium 120 mg Q12HR SC 03/27/25 08:00 03/28/25 09:36 120 MG Digoxin 0.125 mg DAILY PO 03/28/25 10:00 03/28/25 09:33 0.125 MG Levofloxacin/ Dextrose 100 ml @ 100 mls/hr DAILY IV 03/29/25 10:00 UNV Laboratory Results Laboratory Tests 03/26/25 05:53 03/27/25 06:25 03/28/25 06:22 Urinalysis Test 03/25/25 03:20 Urine Color Yellow (Yellow) Urine Clarity Clear (Clear) Urine pH 6.5 (5.0-9.0) Urine Specific [place] 1.042 (1.001-1.035) Urine Protein Trace (Negative) H Urine Ketones 1+ (Negative) H Urine Blood Negative /uL (Negative) Urine Nitrite Negative (Negative) Urine Bilirubin Negative (Negative) Urine Urobilinogen Normal mg/dL (Negative) Urine Leukocyte Esterase Negative /uL (Negative) Urine RBC 2 /hpf (0 - 3) Urine Microscopic WBC 1 /HPF (0-3) Urine Squamous Epithelial Cells None seen /hpf (<5) Urine Bacteria None seen /hpf (None Seen) Urine Glucose 4+ mg/dL (Normal) H Microbiology Microbiology Date/Time Source Procedure Growth Status 03/25/25 14:45 Leg Gram Stain - Final Complete 03/25/25 14:45 Wound Culture - Final Staphylococcus aureus Streptococcus Group A Complete 03/24/25 01:06 Blood Blood Culture - Preliminary NO GROWTH AFTER 72 HOURS OF INCUBATION. Resulted Labs and/or images reviewed: Labs reviewed by me, Image(s) reviewed by me Assessment/Plan Assessment/Plan Sepsis with WBC 23 K secondary to cellulitis right lower extremity blood cultures negative wound cultures growing group a strep and MSSA; discontinue vancomycin, start Levaquin 500 mg IV daily for one month Acute on chronic decompensated heart failure (HFrEF) --(previous EF 40%) AFib with RVR, ? chronic vs paroxymal/transient, on BB cardiology consult appreciated, amiodarone tablets digoxin metoprolol Lovenox Mildy elevated troponin, likely representing type 2 demand ischemia Non-sustained ventricular tachycardia Left inguinal lymphadenopathy BRODY possible CKD DM 2 well-controlled A1c 6.2 Right lower extremity diabetic ulcer Mild peripheral arterial disease bilateral lower extremities status post peripheral angiogram by Dr. Gale Patient used to live with his brother who recently Patient's daughter is an RN who lives in [place] DVT ruled out hx of Falls Hypertension Type 2 diabetes Morbid obesity Time spent 50 minutes Advanced care planning time 20 minutes EARNESTINE Us at bed side Patient lives alone Spoke to patient's daughter Cristina (ICU nurse at [facility]) [phone], she is requesting SNF placement for IV antibiotics physical therapy and wound care Plan discussed with: Patient My Orders Orders - RIDGE LEGER MD Procedure Category Date Status Time Levofloxacin 500mg PHA 03/29/25 Logged (Levaquin 500mg/ 100m 10:00 Levofloxacin 500mg PHA 03/28/25 Logged (Levaquin 500mg/ 100m 10:15 Insert Midline ORDERS 03/28/25 Transmitted 10:05 Date of Service: Mar 28, 2025 Billing Provider: RIDGE LEGER MD Common Visit Codes: [id number] INP/OBS CARE(HIGH) RIDGE LEGER MD Mar 28, 2025 10:15
--- NOTE | 2025-03-28 10:21 | DVHDS2 ---
Discharge Summary Date of Admission Mar 24, 2025 at 00:36 Date of Discharge: Mar 28, 2025 Admitting Diagnosis Chronic nonhealing left foot wound and shortness of breath Wounds: Chronic nonhealing left foot wound Labs/Diagnostic Data: Laboratory Results Test 03/28/25 07:57 03/28/25 06:22 03/27/25 13:54 03/27/25 06:25 POC Glucose 155 mg/dl (70-106) Creatinine 0.79 mg/dL (0.700-1.30) Glomerular Filtration Rate Calc 100 mL/min (>90) Vancomycin Level Trough 5.6 ug/mL (5-10) Sodium Level 134 mmol/L (136-145) Potassium Level 4.4 mmol/L (3.5-5.1) Chloride Level 100 mmol/L (98-107) Carbon Dioxide Level 24 mmol/L (20-31) Anion Gap 10 (5-15) Blood Urea Nitrogen 18 mg/dL (9-23) BUN/Creatinine Ratio 27.7 (10.0-20.0) Serum Glucose 141 mg/dL (74-106) Calcium Level 8.4 mg/dL (8.7-10.4) Total Bilirubin 0.7 mg/dL (0.2-1.0) Aspartate Amino Transferase (AST) 24 U/L (13-40) Alanine Aminotransferase (ALT) 14 U/L (7-40) Alkaline Phosphatase 87 U/L (46-116) Total Protein 5.9 g/dL (5.7-8.2) Albumin 3.1 g/dL (3.2-4.8) Test 03/26/25 05:53 03/25/25 08:15 03/25/25 03:20 03/24/25 09:47 White Blood Count 16.0 10^3/uL (4.4-10.8) Red Blood Count 4.29 10^6/uL (4.5-5.90) Hemoglobin 12.8 g/dL (13.5-17.5) Hematocrit 37.8 % (41.0-53.0) Mean Corpuscular Volume 88.0 fL (80.0-100.0) Mean Corpuscular Hemoglobin 29.9 pg (28.0-32.0) Mean Corpuscular Hemoglobin Concent 34.0 g/dL (32.0-36.0) Red Cell Distribution Width 14.8 % (11.8-14.3) Platelet Count 322 10^3/uL (140-450) Mean Platelet Volume 7.7 fL (6.9-10.8) Neutrophils (%) (Auto) 86.2 % (37.0-80.0) Lymphocytes (%) (Auto) 6.5 % (10.0-50.0) Monocytes (%) (Auto) 6.8 % (0.0-12.0) Eosinophils (%) (Auto) 0.4 % (0.0-7.0) Basophils (%) (Auto) 0.1 % (0.0-2.0) Neutrophils # (Auto) 13.8 10 ^3/uL (1.6-8.6) Lymphocytes # (Auto) 1.0 10 ^3/uL (0.4-5.4) Monocytes # (Auto) 1.1 10 ^3/uL (0-1.3) Eosinophils # (Auto) 0.1 10 ^3/uL (0-0.8) Basophils # (Auto) 0 10 ^3/uL (0-0.2) Nucleated Red Blood Cells 0.1 % Magnesium Level 2.3 mg/dL (1.6-2.6) B-Type Natriuretic Peptide 264.53 pg/mL (0-100) Urine Color Yellow (Yellow) Urine Clarity Clear (Clear) Urine pH 6.5 (5.0-9.0) Urine Specific [place] 1.042 (1.001-1.035) Urine Protein Trace (Negative) Urine Ketones 1+ (Negative) Urine Blood Negative /uL (Negative) Urine Nitrite Negative (Negative) Urine Bilirubin Negative (Negative) Urine Urobilinogen Normal mg/dL (Negative) Urine Leukocyte Esterase Negative /uL (Negative) Urine RBC 2 /hpf (0 - 3) Urine Microscopic WBC 1 /HPF (0-3) Urine Squamous Epithelial Cells None seen /hpf (<5) Urine Bacteria None seen /hpf (None Seen) Urine Glucose 4+ mg/dL (Normal) Hemoglobin A1c 6.6 % A1C (<5.7) Troponin I High Sensitivity 37 ng/L (</=54) Triglycerides Level 108 mg/dL (< 150) Cholesterol Level 60 mg/dL (< 200) LDL Cholesterol 15 mg/dL (< 100) HDL Cholesterol 14 mg/dL (40-59) Thyroid Stimulating Hormone (TSH) 1.42 uIU/mL (0.55-4.78) Test 03/23/25 19:07 Prothrombin Time 11.9 sec (9.3-11.8) Prothrombin Time INR 1.14 (0.9-1.15) Activated Partial Thromboplast Time 27.1 SEC (24.5-34.5) Other Laboratory Tests 03/28/25 06:22 03/27/25 06:25 03/26/25 05:53 Brief Hx & Hospital Course: 64-year-old male with multiple medical problems including hypertension diabetes congestive heart failure AFib with RVR came in for generalized weakness shortness of breaths and nonhealing left foot wound. Found to be in sepsis with WBC 23 K secondary to cellulitis and nonhealing left foot wound. Also found to be in AFib with a RVR and seen by Cardiology Dr. Noemi Summers placed on amiodarone tablets digoxin metoprolol and Lovenox diabetes well-controlled with a A1c 6.2 patient underwent peripheral angiogram by Dr. Gale and found to have mild peripheral arterial disease with a no intervention required history of hypertension diabetes recurrent falls at home he lives alone morbidly obese DVT bilateral lower extremity ruled out. Wound cultures came positive for MSSA and group a strep antibiotic changed from vancomycin to Levaquin IV which he will receive for one month in the longterm facility. Ejection fraction 40 percent. General condition poor but stable at the time of discharge. Consults/Reason for consult Cardiology Dr. Noemi Summers Operations or Procedures None Condition at Discharge: Fair Final Diagnosis/Problems List Sepsis with WBC 23 K secondary to cellulitis right lower extremity blood cultures negative wound cultures growing group a strep and MSSA; discontinue vancomycin, start Levaquin 500 mg IV daily for one month Acute on chronic decompensated heart failure (HFrEF) --(previous EF 40%) AFib with RVR, ? chronic vs paroxymal/transient, on BB cardiology consult appreciated, amiodarone tablets digoxin metoprolol Lovenox Mildy elevated troponin, likely representing type 2 demand ischemia Non-sustained ventricular tachycardia Left inguinal lymphadenopathy BRODY possible CKD DM 2 well-controlled A1c 6.2 Right lower extremity diabetic ulcer Mild peripheral arterial disease bilateral lower extremities status post peripheral angiogram by Dr. Gale Patient used to live with his brother who recently Patient's daughter is an RN who lives in [place] DVT ruled out hx of Falls Hypertension Type 2 diabetes Morbid obesity Discharge Disposition: [facility] Facility Discharge Instruct/Medications Diet: Cardiac 2g Na,low cholest Activity: Light activity Follow Up/Referral: Follow up with the detention Medications: see list Scheduled Atorvastatin Calcium (Atorvastatin Calcium), 1 TAB PO DAILY, (Reported) Cholecalciferol (Vitamin D3), 1,000 UNIT PO DAILY, (Reported) Empagliflozin (Jardiance), 1 TAB PO DAILY, (Reported) Insulin Glargine (Lantus Solostar), 32 UNITS SC HS, (Reported) Insulin Lispro (Insulin Lispro Kwikpen), 5 UNIT SC TID, (Reported) Losartan Potassium (Losartan Potassium), 1 TAB PO DAILY, (Reported) Metoprolol Succinate (Metoprolol Succinate Er), 1 TAB PO DAILY, (Reported) Spironolactone (Spironolactone), 1 TAB PO DAILY, (Reported) 39 (Time taken for discharge summary 39 minutes) Discharge Statement: "Patient was advised to return to the ER or call 911 if any headaches, dizziness, shortness of breath, chest pain, abdominal pain, bleeding, fevers, or worsening of medical condition. Patient was counseled about treatment plan, medications, possible side effects, patientverbalized understanding. All questions were answered to the best of my ability. This discharge took greater then 30 minutes in planning, reviewing documentation, counseling the patient, and discussing with other team members." ASSESSMENT ASSESSMENT Hospital Course Marginally improved Assessment Sepsis with WBC 23 K secondary to cellulitis right lower extremity blood cultures negative wound cultures growing group a strep and MSSA; discontinue vancomycin, start Levaquin 500 mg IV daily for one month Acute on chronic decompensated heart failure (HFrEF) --(previous EF 40%) AFib with RVR, ? chronic vs paroxymal/transient, on BB cardiology consult appreciated, amiodarone tablets digoxin metoprolol Lovenox Mildy elevated troponin, likely representing type 2 demand ischemia Non-sustained ventricular tachycardia Left inguinal lymphadenopathy BRODY possible CKD DM 2 well-controlled A1c 6.2 Right lower extremity diabetic ulcer Mild peripheral arterial disease bilateral lower extremities status post peripheral angiogram by Dr. Gale Patient used to live with his brother who recently Patient's daughter is an RN who lives in [place] DVT ruled out hx of Falls Hypertension Type 2 diabetes Morbid obesity Date of Service: Mar 28, 2025 Billing Provider: RIDGE LEGER MD Common Visit Codes: 74268-PIN/OBS DISCH DAY >30min RIDGE LEGER MD Mar 28, 2025 10:21
--- NOTE | 2025-03-28 23:51 | DVHPN2 ---
Progress Note - Dictate Date Seen: Mar 28, 2025 Medical Necessity Reason Pt with a Central, PICC or Fol: No Subjective Patient was seen and evaluated in follow up. Patient complains of generalized discomfort. CM is working on SNF placement. Telemetry reviewed. vital signs Vital Sign Date Time Temp Pulse Resp B/P (MAP) Pulse Ox O2 Delivery O2 Flow Rate FiO2 03/28/25 09:36 67 116/66 03/28/25 08:00 Room Air* 0 21 03/28/25 05:00 98.5 18 96 98.5 Total Intake and Output 03/27/25 03/27/25 03/28/25 15:00 23:00 07:00 Intake Total 0 ml 930 ml 200 ml Output Total 1200 ml 1150 ml Balance 0 ml -270 ml -950 ml medications Current Medications Medications Dose Ordered Sig/Angeline Route Start Time Stop Time Status Last Admin Dose Admin Vancomycin HCl 250 ml @ 250 mls/hr Q1H IV 03/25/25 10:45 03/25/25 12:44 Cancel Atorvastatin Calcium 40 mg HS PO 03/25/25 22:00 03/27/25 21:07 40 MG Amiodarone HCl 200 mg Q12HR PO 03/25/25 22:00 03/28/25 09:33 200 MG Furosemide 20 mg DAILY PO 03/26/25 10:00 03/28/25 09:35 20 MG Vancomycin HCl 250 ml @ 250 mls/hr Q1H IV 03/25/25 13:15 03/25/25 15:14 Cancel Metoprolol Tartrate 5 mg Q5M PRN IV 03/26/25 08:30 Metoprolol Tartrate 50 mg BID PO 03/26/25 10:00 03/28/25 09:36 50 MG Diagnostic Test (Pha) 1 strip IQ4HR 03/26/25 12:00 03/28/25 11:25 1 STRIP Insulin Human Regular IQ4HR SC 03/26/25 12:00 03/28/25 11:25 2 UNITS Dextrose 50 ml UD PRN IV 03/26/25 08:30 Sodium Chloride 10 ml Q8HR IV 03/26/25 14:00 03/28/25 04:58 10 ML Acetaminophen/ Hydrocodone Bitart 1 tab Q4HP PRN PO 03/26/25 08:45 03/28/25 12:22 1 TAB Ondansetron HCl 4 mg Q4HP PRN IV 03/26/25 08:45 Docusate Sodium 100 mg BIDPRN PRN PO 03/26/25 08:45 Acetaminophen 650 mg Q6HP PRN PO 03/26/25 08:45 Nitroglycerin 0.4 mg Q5MINP PRN SL 03/26/25 08:45 Morphine Sulfate 2 mg Q30M PRN IV 03/26/25 08:45 Aspirin 81 mg DAILY PO 03/26/25 10:00 03/28/25 09:33 81 MG Enoxaparin Sodium 120 mg Q12HR SC 03/27/25 08:00 03/28/25 09:36 120 MG Digoxin 0.125 mg DAILY PO 03/28/25 10:00 03/28/25 09:33 0.125 MG Levofloxacin/ Dextrose 100 ml @ 100 mls/hr DAILY IV 03/29/25 10:00 objective GENERAL: Alert and oriented x 3. No acute distress. EYES: PERRL, EOMI. Anicteric. HENT: Moist mucous membranes. LUNGS: Clear to auscultation bilaterally. CARDIOVASCULAR: Regular rate and rhythm. ABDOMEN: Soft, non-tender and non-distended. EXTREMITIES: LLE erythema from foot extending to inner thigh. BLE wounds (see wound care documentation) NEUROLOGIC: No focal neurological deficits. SKIN: Warm, dry. laboratory and microbiology Laboratory Tests 03/28/25 06:22 03/27/25 06:25 03/26/25 05:53 Test 03/27/25 06:25 Range/Units Serum Glucose 141 H 74-106 mg/dL Problem List AFib with RVR, likely persistent, on BB (CHADS-VASc score 3, HAS-BLED 1). Acute on chronic decompensated heart failure (HFrecEF), NYHA Class II. Mildly elevated troponin, likely representing type 2 demand ischemia. LLE peripheral arterial disease with associated diabetic ulcer. Non-sustained ventricular tachycardia x 5 beats. Right lower extremity diabetic ulcer. Left inguinal lymphadenopathy. Likely BRODY on CKD. DVT, ruled out. History of Falls. Hypertension. Type 2 diabetes. Medical non-compliance. Morbid obesity. Assessment/Plan Continued all current supportive medical care. Digoxin. [place] for pain management. Amiodarone. Aspirin,Metoprolol. DVT prophylactics. Diuretics with Lasix. Nitro SL. IV antibiotics as ordered. Additional plan as per the hospital course. Dietary Evaluation Review Comments: CCHO-60 cardiac diet with Isai BID Expected Outcomes/Goals: controlled DM, healed wound, gradual wt loss Plan discussed with: Patient CLINT LOUISE MD Mar 28, 2025 12:35
[2025-03-29 01:00] VITALS: BP 109/79; PULSE 75; RESP 18; TEMP 98; O2SAT 96
[2025-03-29 05:00] VITALS: BP 117/68; PULSE 83; RESP 20; TEMP 98.1; O2SAT 96
[2025-03-29 08:00] VITALS: PULSE 120
[2025-03-29 09:01] VITALS: BP 109/71; PULSE 66; RESP 18; TEMP 98.4; O2SAT 100
--- NOTE | 2025-03-29 09:27 | DVHPN2 ---
Reviewed: Care Plan, H&P, Labs, Medications, Previous Orders, Radiology Changes from previous H/P or p: No Changes Eyes: No Pain, No Vision change, No Conjunctivae inflammation, No Eyelid inflammation, No Other, No Redness ENT: No Ear pain, No Ear discharge, No Nose pain, No Nose discharge, No Nose congestion, No Mouth pain, No Mouth swelling, No Throat pain, No Throat swelling, No Other Cardiovascular: No Chest Pain, No Palpitations, No Orthopnea, No Paroxysmal Noc. Dyspnea; Edema; No Lt Headedness, No Other Respiratory: No Cough, No Dry, No Shortness of breath, No SOB with excertion, No Wheezing, No Hemoptysis, No Pleuritic Pain, No Sputum, No Other Gastrointestinal: No Nausea, No Vomiting, No Abdominal Pain, No Diarrhea, No Constipation, No Melena, No Hematochezia, No Other Genitourinary: No Dysuria, No Frequency, No Incontinence, No Hematuria, No Retention, No Other Musculoskeletal: No other, No neck pain, No shoulder pain, No arm pain, No back pain, No hand pain, No leg pain, No foot pain Skin: No Rash, No Lesions, No Jaundice, No Bruising, No Other Objective Vitals Vital Signs Date Time Temp Pulse Resp B/P (MAP) Pulse Ox O2 Delivery O2 Flow Rate FiO2 03/29/25 09:01 98.4 66 18 109/71 (84) 100 98.4 03/29/25 08:00 Room Air* 0 21 Intake/Output Intake and Output 03/29/25 07:00 Intake Total 890 ml Output Total 1075 ml Balance -185 ml Intake Oral 890 ml Output Urine Total 1075 ml Medications Current Medications Medications Dose Ordered Sig/Angeline Route Start Time Stop Time Status Last Admin Dose Admin Vancomycin HCl 250 ml @ 250 mls/hr Q1H IV 03/25/25 10:45 03/25/25 12:44 Cancel Atorvastatin Calcium 40 mg HS PO 03/25/25 22:00 03/28/25 21:10 40 MG Amiodarone HCl 200 mg Q12HR PO 03/25/25 22:00 03/28/25 21:10 200 MG Furosemide 20 mg DAILY PO 03/26/25 10:00 03/28/25 09:35 20 MG Vancomycin HCl 250 ml @ 250 mls/hr Q1H IV 03/25/25 13:15 03/25/25 15:14 Cancel Metoprolol Tartrate 5 mg Q5M PRN IV 03/26/25 08:30 Metoprolol Tartrate 50 mg BID PO 03/26/25 10:00 03/28/25 21:18 50 MG Diagnostic Test (Pha) 1 strip IQ4HR 03/26/25 12:00 03/29/25 08:22 1 STRIP Insulin Human Regular IQ4HR SC 03/26/25 12:00 03/29/25 08:22 2 UNITS Dextrose 50 ml UD PRN IV 03/26/25 08:30 Sodium Chloride 10 ml Q8HR IV 03/26/25 14:00 03/29/25 06:03 10 ML Acetaminophen/ Hydrocodone Bitart 1 tab Q4HP PRN PO 03/26/25 08:45 03/28/25 21:11 1 TAB Ondansetron HCl 4 mg Q4HP PRN IV 03/26/25 08:45 Docusate Sodium 100 mg BIDPRN PRN PO 03/26/25 08:45 Acetaminophen 650 mg Q6HP PRN PO 03/26/25 08:45 Nitroglycerin 0.4 mg Q5MINP PRN SL 03/26/25 08:45 Morphine Sulfate 2 mg Q30M PRN IV 03/26/25 08:45 Aspirin 81 mg DAILY PO 03/26/25 10:00 03/28/25 09:33 81 MG Enoxaparin Sodium 120 mg Q12HR SC 03/27/25 08:00 03/28/25 21:18 120 MG Digoxin 0.125 mg DAILY PO 03/28/25 10:00 03/28/25 09:33 0.125 MG Levofloxacin/ Dextrose 100 ml @ 100 mls/hr DAILY IV 03/29/25 10:00 Laboratory Results Laboratory Tests 03/26/25 05:53 03/27/25 06:25 03/28/25 06:22 Urinalysis Test 03/25/25 03:20 Urine Color Yellow (Yellow) Urine Clarity Clear (Clear) Urine pH 6.5 (5.0-9.0) Urine Specific [place] 1.042 (1.001-1.035) Urine Protein Trace (Negative) H Urine Ketones 1+ (Negative) H Urine Blood Negative /uL (Negative) Urine Nitrite Negative (Negative) Urine Bilirubin Negative (Negative) Urine Urobilinogen Normal mg/dL (Negative) Urine Leukocyte Esterase Negative /uL (Negative) Urine RBC 2 /hpf (0 - 3) Urine Microscopic WBC 1 /HPF (0-3) Urine Squamous Epithelial Cells None seen /hpf (<5) Urine Bacteria None seen /hpf (None Seen) Urine Glucose 4+ mg/dL (Normal) H Microbiology Microbiology Date/Time Source Procedure Growth Status 03/25/25 14:45 Leg Gram Stain - Final Complete 03/25/25 14:45 Wound Culture - Final Staphylococcus aureus Streptococcus Group A Complete 03/24/25 01:06 Blood Blood Culture - Final NO GROWTH AFTER 5 DAYS OF INCUBATION. Complete Labs and/or images reviewed: Labs reviewed by me, Image(s) reviewed by me Assessment/Plan Assessment/Plan Sepsis with WBC 23 K secondary to cellulitis right lower extremity blood cultures negative wound cultures growing group a strep and MSSA; discontinue vancomycin, start Levaquin 500 mg IV daily for one month Acute on chronic decompensated heart failure (HFrEF) --(previous EF 40%) AFib with RVR, ? chronic vs paroxymal/transient, on BB cardiology consult appreciated, amiodarone tablets digoxin metoprolol Lovenox Mildy elevated troponin, likely representing type 2 demand ischemia Non-sustained ventricular tachycardia Left inguinal lymphadenopathy BRODY possible CKD DM 2 well-controlled A1c 6.2 Right lower extremity diabetic ulcer Mild peripheral arterial disease bilateral lower extremities status post peripheral angiogram by Dr. Gale Patient used to live with his brother who recently Patient's daughter is an RN who lives in [place] DVT ruled out hx of Falls Hypertension Type 2 diabetes Morbid obesity Time spent 50 minutes Advanced care planning time 20 minutes EARNESTINE Us at bed side Patient lives alone Spoke to patient's daughter Cristina (ICU nurse at [place]) [phone], she is requesting SNF placement for IV antibiotics physical therapy and wound care Patient was discharged to [facility] on 03/28/2025, received authorization from [facility], he will be going to SNF today Plan discussed with: Patient My Orders Orders - RIDGE LEGER MD Procedure Category Date Status Time Levofloxacin 500mg PHA 03/29/25 In Process (Levaquin 500mg/ 100m 10:00 Insert Midline ORDERS 03/28/25 Transmitted 10:05 Discharge DISCHARGE 03/28/25 Transmitted 10:15 * Dentistry Professor CONS 03/28/25 Transmitted Consult Date of Service: Mar 29, 2025 Billing Provider: RIDGE LEGER MD Common Visit Codes: [id number] INP/OBS CARE(HIGH) RIDGE LEGER MD Mar 29, 2025 09:27
[2025-03-29 13:00] VITALS: BP 92/65; PULSE 72; RESP 18; TEMP 97.8; O2SAT 97
[2025-03-29 16:49] VITALS: BP 88/57; PULSE 82; RESP 18; TEMP 97.6; O2SAT 97
--- NOTE | 2025-03-29 17:46 | DVHPN2 ---
Progress Note - Dictate Date Seen: Mar 29, 2025 Medical Necessity Reason Pt with a Central, PICC or Fol: No Subjective Patient was seen and evaluated in follow up. Patient complains of generalized discomfort. BS are WNL. Per CM, they have received auth for SNF placement. CM is working on finding SNF. Telemetry reviewed. vital signs Vital Sign Date Time Temp Pulse Resp B/P (MAP) Pulse Ox O2 Delivery O2 Flow Rate FiO2 03/29/25 10:11 66 109/71 03/29/25 09:01 98.4 18 100 98.4 03/29/25 08:00 Room Air* 0 21 Total Intake and Output 03/28/25 03/28/25 03/29/25 15:00 23:00 07:00 Intake Total 590 ml 300 ml Output Total 375 ml 700 ml Balance 215 ml -400 ml medications Current Medications Medications Dose Ordered Sig/Angeline Route Start Time Stop Time Status Last Admin Dose Admin Vancomycin HCl 250 ml @ 250 mls/hr Q1H IV 03/25/25 10:45 03/25/25 12:44 Cancel Atorvastatin Calcium 40 mg HS PO 03/25/25 22:00 03/28/25 21:10 40 MG Amiodarone HCl 200 mg Q12HR PO 03/25/25 22:00 03/29/25 10:11 200 MG Furosemide 20 mg DAILY PO 03/26/25 10:00 03/29/25 10:11 20 MG Vancomycin HCl 250 ml @ 250 mls/hr Q1H IV 03/25/25 13:15 03/25/25 15:14 Cancel Metoprolol Tartrate 5 mg Q5M PRN IV 03/26/25 08:30 Metoprolol Tartrate 50 mg BID PO 03/26/25 10:00 03/29/25 10:11 50 MG Diagnostic Test (Pha) 1 strip IQ4HR 03/26/25 12:00 03/29/25 11:38 1 STRIP Insulin Human Regular IQ4HR SC 03/26/25 12:00 03/29/25 11:38 3 UNITS Dextrose 50 ml UD PRN IV 03/26/25 08:30 Sodium Chloride 10 ml Q8HR IV 03/26/25 14:00 03/29/25 06:03 10 ML Acetaminophen/ Hydrocodone Bitart 1 tab Q4HP PRN PO 03/26/25 08:45 03/29/25 09:58 1 TAB Ondansetron HCl 4 mg Q4HP PRN IV 03/26/25 08:45 Docusate Sodium 100 mg BIDPRN PRN PO 03/26/25 08:45 Acetaminophen 650 mg Q6HP PRN PO 03/26/25 08:45 Nitroglycerin 0.4 mg Q5MINP PRN SL 03/26/25 08:45 Morphine Sulfate 2 mg Q30M PRN IV 03/26/25 08:45 Aspirin 81 mg DAILY PO 03/26/25 10:00 03/29/25 09:56 81 MG Enoxaparin Sodium 120 mg Q12HR SC 03/27/25 08:00 03/29/25 09:58 120 MG Digoxin 0.125 mg DAILY PO 03/28/25 10:00 03/29/25 09:57 0.125 MG Levofloxacin/ Dextrose 100 ml @ 100 mls/hr DAILY IV 03/29/25 10:00 03/29/25 09:56 100 MLS/HR objective GENERAL: Alert and oriented x 3. No acute distress. EYES: PERRL, EOMI. Anicteric. HENT: Moist mucous membranes. LUNGS: Clear to auscultation bilaterally. CARDIOVASCULAR: Regular rate and rhythm. ABDOMEN: Soft, non-tender and non-distended. EXTREMITIES: LLE erythema from foot extending to inner thigh. BLE wounds (see wound care documentation) NEUROLOGIC: No focal neurological deficits. SKIN: Warm, dry. laboratory and microbiology Laboratory Tests 03/28/25 06:22 03/27/25 06:25 03/26/25 05:53 Test 03/27/25 06:25 Range/Units Serum Glucose 141 H 74-106 mg/dL Problem List AFib with RVR, likely persistent, on BB (CHADS-VASc score 3, HAS-BLED 1). Acute on chronic decompensated heart failure (HFrecEF), NYHA Class II. Mildly elevated troponin, likely representing type 2 demand ischemia. LLE peripheral arterial disease with associated diabetic ulcer. Non-sustained ventricular tachycardia x 5 beats. Right lower extremity diabetic ulcer. Left inguinal lymphadenopathy. Likely BRODY on CKD. DVT, ruled out. History of Falls. Hypertension. Type 2 diabetes. Medical non-compliance. Morbid obesity. Assessment/Plan Continued all current supportive medical care. [place] for pain management. Amiodarone. Aspirin, Lipitor, Metoprolol. Digoxin. DVT prophylactics. Diuretics with Lasix. Nitro SL. IV antibiotics as ordered. Additional plan as per the hospital course. Dietary Evaluation Review Comments: CCHO-60 cardiac diet with Isai BID Expected Outcomes/Goals: controlled DM, healed wound, gradual wt loss Plan discussed with: Patient CLINT LOUISE MD Mar 29, 2025 12:06
== END 2025-03-29 17:00 | DRG 720 ==
LOC: EDBD 18:42 → ER 18:42 → OVERFLOW 03-24 00:36 → TELE-CENTR 03-24 04:22
PROVIDERS: ADMIT Family Medicine; ATTEND Family Medicine
PROC: B41FYZZ Fluoroscopy of Right Lower Extremity Arteries using Other Contrast (ICD-10-PCS; principal; 2025-03-26)
PROC: B41GYZZ Fluoroscopy of Left Lower Extremity Arteries using Other Contrast (ICD-10-PCS; 2025-03-26)
PROC: B410YZZ Fluoroscopy of Abdominal Aorta using Other Contrast (ICD-10-PCS; 2025-03-26)
PROC: 05HD33Z Insertion of Infusion Device into Right Cephalic Vein, Percutaneous Approach (ICD-10-PCS; 2025-03-29)
PROC: B54MZZA Ultrasonography of Right Upper Extremity Veins, Guidance (ICD-10-PCS; 2025-03-29)
DX: A41.9 Sepsis, unspecified organism (principal); N17.0 Acute kidney failure with tubular necrosis; I21.A1 Myocardial infarction type 2; I50.23 Acute on chronic systolic (congestive) heart failure; I47.20 Ventricular tachycardia, unspecified; I13.0 Hypertensive heart and chronic kidney disease with heart failure and stage 1 through stage 4 chronic kidney disease, or unspecified chronic kidney disease; E11.22 Type 2 diabetes mellitus with diabetic chronic kidney disease; E11.65 Type 2 diabetes mellitus with hyperglycemia; L03.116 Cellulitis of left lower limb; E11.622 Type 2 diabetes mellitus with other skin ulcer; L98.498 Non-pressure chronic ulcer of skin of other sites with other specified severity; E87.6 Hypokalemia; E66.01 Morbid (severe) obesity due to excess calories; I48.91 Unspecified atrial fibrillation; N18.9 Chronic kidney disease, unspecified; R59.0 Localized enlarged lymph nodes; E11.51 Type 2 diabetes mellitus with diabetic peripheral angiopathy without gangrene; Z91.81 History of falling; Z91.199 Patient's noncompliance with other medical treatment and regimen due to unspecified reason; Z82.5 Family history of asthma and other chronic lower respiratory diseases; Z79.01 Long term (current) use of anticoagulants; Z68.38 Body mass index [BMI] 38.0-38.9, adult
CPT/HCPCS: 36415; 70450; 71045; 75716; 80053; 80061; 80202; 81001; 82565; 82962; 83036; 83735; 83880; 84443; 84484; 85025; 85610; 85730; 87040; 87077; 87186; 87205; 93005; 93306; 93925; 93971; 96365; 96375; 97110; 97116; 97163; 97530; 99152; G0378; J1815; J1956; J2250; J2543; Q9967